=== PATIENT | female | born 1935 | race American Indian/Alaskan Native ===

== ENCOUNTER 2016-09-21 10:02 | Outpatient (CLI) | payer MEDICARE ==
--- NOTE | 2016-09-21 11:06 | Mammography Report ---
BONE DENSITY STUDY: Postmenopausal osteoporosis. DEFINITIONS: BMD = Bone Mineral Density T-score = BMD related to mean peak bone mass of young adult (mean expressed in Standard Deviation) Z-score = Age matched BMD expressed in SD World Health Organization (WHO) Diagnostic Criteria Normal T-score > -1 SD Osteopenia T-score between -1 and -2.4 SD Osteoporosis T-score -2.5 SD or below FINDINGS: The weighted average BMD of lumbar spine L1-L4 is 1.067 with a T-score of -0.8. The weighted average BMD of hip is 0.820 with a T-score of -1.3. IMPRESSION: The patient's average T-score is diagnostic for osteopenia and average relative risk for fracture. NOTE: BMD is not the only risk factor for fracture; also consider factors such as the patient's age, risk of falling, previous osteoporotic fracture, family history of osteoporotic fractures, current smoker, and low body weight. Mckinney's triangle is a region of interest in femur, predominantly of trabecular bone. It is not a true anatomic site, and ISCD does not recommend its use clinically.
== END 2016-09-21 10:03 | disposition home or self-care (01) ==
LOC: SPVWC 10:02
PROVIDERS: ATTEND Internal Medicine
DX: M81.0 Age-related osteoporosis without current pathological fracture (principal); M85.88 Other specified disorders of bone density and structure, other site
CPT/HCPCS: 77080

== ENCOUNTER 2022-01-03 17:09 | Inpatient (IN) | payer MEDICARE ==
[2022-01-03] MEDS ORDERED: SODIUM CHLORIDE 0.9% 500 ML 500 ML IV ONE ×2 (17:19→19:10)
[2022-01-03] MEDS ORDERED: ATROPINE 0.1% (1 MG/10 ML) CARDIAC SYRINGE IV ONE ×2 (17:19→20:03)
[2022-01-03] MEDS ORDERED: SODIUM BICARB 8.4% 50 MEQ/50 ML SYRINGE IV ONE ×2 (17:20→19:10)
--- NOTE | 2022-01-03 17:23 | Emergency Department Report ---
ED General Adult HPI - General Chief complaint: Altered Mental Status Stated complaint: BRADYCARDIA Time Seen by Provider: 01/03/22 17:14 Source: patient, EMS (Verbal report received from emergency medical services. EMS documentation not available at time of chart dictation ), RN notes reviewed, old records reviewed Mode of arrival: Stretcher Limitations: Altered Mental Status, Physical Limitation - History of Present Illness Initial comments: The patient was evaluated in the emergency department for symptoms described in the history of present illness. He/she was evaluated in the context of the global COVID-19 pandemic, which necessitated consideration that the patient might be at risk for infection with the virus that causes COVID-19. Insti tutional protocols and algorithms that pertain to the evaluation of patients at risk for COVID-19 are in a state of rapid change based on information released by regulatory bodies including the CDC and federal and state organizations. These policies and algorithms were followed during the patient's care in the emergency department. Please note that these policies, procedures and recommendations changed on a rapid basis. This is an 86-year-old female with an unknown past medical history. She is brought to the hospital by emergency medical services. EMS reports that they were activated after her neighbor went to check on patient, after son, who is currently out of state, felt that the patient was altered. As per EMS, last known well time is not known, but likely yesterday. The patient denies physical pain. As per EMS, patient bradycardic in the field, heart rate of 38 bpm, blood p ressure in the 80s/90s. EMS gave atropine x1, with improvement in blood pressure, heart rate to the mid 40s. EMS reports normal Accu-Chek in the field Patient is currently awake and alert to name, following commands. She denies headache, neck pain, chest pain, abdominal pain and shortness of breath. She does not know what medications he takes. Resting heart rate currently 42 bpm. Blood pressure 89mmHg systolic. Patient given 1 mg of atropine, blood pressure improved to 110 mmHg systolic -: unknown - Related Data Allergies Allergy/AdvReac Type Severity Reaction Status Date / Time latex Allergy Rash Unverified 04/14/13 10:11 ED Review of Systems ROS: Stated complaint: BRADYCARDIA Other details as noted in HPI Comment: Unobtainable due to pts medical conditions Constitutional: malaise. denies: fever Eyes: denies: eye discharge Respiratory: denies: cough Cardiovascular: denies: chest pain Gastrointestinal: denies: abdominal pain Neurological: weakness, confusion ED Past Medical Hx - Past Medical History Hx Hypertension: Yes Hx Heart Attack/AMI: Yes Hx Diabetes: Yes - Surgical History Hx Open Heart Surgery: Yes Hx Cholecystectomy: Yes Additional Surgical History: hysterectomy - Social History Smoking Status: Never Smoker Substance Use Type: None ED Physical Exam - General Limitations: Altered Mental Status General appearance: obese, other (The patient is listless but aroused) - Head Head exam: Present: atraumatic, normocephalic - Eye Eye exam: Present: normal appearance, EOMI. Absent: nystagmus - ENT ENT exam: Present: normal exam, normal orophraynx, mucous membranes moist, normal external ear exam - Neck Neck exam: Present: normal inspection, full ROM. Absent: tenderness, meningismus - Respiratory Respiratory exam: Present: decreased breath sounds. Absent: respiratory distress, wheezes, rales, rhonchi, stridor - Cardiovascular Cardiovascular Exam: Present: normal rhythm, bradycardia. Absent: tachycardia, irregular rhythm, systolic murmur, diastolic murmur, rubs, gallop - GI/Abdominal GI/Abdominal exam: Present: soft. Absent: distended, tenderness, guarding, rebound, rigid, pulsatile mass - Extremities Exam Extremities exam: Present: normal inspection, full ROM, pedal edema, other (2+ pulses noted in the bilateral upper and lower extremities. There is no palpable cord. negative Homans sign. Muscular compartments are soft. The pelvis is stable.). Absent: calf tenderness - Back Exam Back exam: Present: normal inspection. Absent: tenderness, CVA tenderness (R), CVA tenderness (L), paraspinal tenderness, vertebral tenderness - Neurological Exam Neurological exam: Present: altered, other (There is no facial droop. The tongue is midline. EOMI. 5 out of 5 strength in 4 extremities. Sensation is i ntact to light touch in 4 extremities) - Psychiatric Psychiatric exam: Present: flat affect - Skin Skin exam: Present: warm, dry, intact, normal color. Absent: rash ED Course Vital Signs 01/03/22 01/03/22 17:48 18:29 Temperature 97.5 F L Pulse Rate 47 L 48 L Respiratory 18 18 Rate Blood Pressure 123/46 Blood Pressure 123/46 136/52 [Left] O2 Sat by Pulse 97 99 Oximetry - Reevaluation(s) Reevaluation #1: 01/03/22 17:40 Differential diagnosis, including but not limited to: Symptomatic bradycardia, pneumonia, UTI, iatrogenic bradycardia, medication interaction/polypharmacy, intracranial lesion, electrolyte derangement Assessment and plan: 86-year-old female with confusion, and bradycardia, improving low blood pressure. N.p.o., aspiration precautions, head of bed elevation. Low threshold to urbano nue administering calcium gluconate, as well as atropine. Obtain appropriate laboratory studies, x-ray the chest, noncontrast CT scan of the brain. Neighbor is going to try and obtain a list of medications that patient takes at home. Son is currently in [place], and does not know what medications the patient takes. We will also discussed with cardiology. 01/03/22 17:52 Blood pressure in the 120s. Contacted cardiology on-call, Dr. Frida Mai Discussed patient's history, physical, EKG findings and clinical impression. Recommend supportive care, fluids, diagnostic work-up and evaluation for undifferentiated altered mental status. Advises that at this point in time, temporary pacemaker not necessary. The cardiology group can follow in consultation. Currently awaiting remainder of laboratory studies and diagnostic work-up 01/03/22 20:03 Heart rate in the 50s. CT scan brain negative for acute findings. Laboratory studies remarkable for potassium of 5.6, and renal insufficiency. Home medications include pantoprazole, amlodipine, azithromycin, Plavix, isosorbide, Bumex, aspirin, hydrocodone, calcitriol, simvastatin. Given hypotension, renal insufficiency, bradycardia, potassium of 5.6, concern for symptom of bradycardia, renal insufficiency, AV amish blockade, shock, and hyperkalemia. Blood pressure currently in the 140s. Patient will be treated empirically for potassium of 5.6/hyperkalemia. Hospital physician, Dr. Brambila, to admit patient to the medical service. Patient and family endorse that the patient herself follows with Dr. Pereira of nephrology. We will obtain nephrology consultation. Cardiology also updated regarding suspicion for brash syndrome. Patient is awake, moving 4 extremities, and appears clinically improved. 01/03/22 20:28 discussed the patient's history, physical, laboratory studies and imaging studies and clinical impression with nephrology on-call, Dr. Pereira. He will follow in consultation ED Medical Decision Making - Lab Data Result diagrams: 01/03/22 18:06 01/03/22 18:06 Vital Signs 01/03/22 17:48 Temperature 97.5 F L Pulse Rate 47 L Respiratory 18 Rate Blood Pressure 123/46 Blood Pressure 123/46 [Left] O2 Sat by Pulse 97 Oximetry - EKG Data -: EKG Interpreted by Me Rate: bradycardia - EKG Data 01/03/22 17:53 The EKG is interpreted at 17: 19 Bradycardia, 43 bpm. There is a borderline leftward axis deviation, with left ventricular hypertrophy, and poor R wave progression. There are nonspecific T wave abnormalities. This is an abnormal EKG. This is not a STEMI - Radiology Data Radiology results: pending, report reviewed, image reviewed CHEST 1 VIEW 01/03/2022 5:29 PM INDICATION / CLINICAL INFORMATION: Altered Mental Status. COMPARISON: 10/23/13 FINDINGS: SUPPORT DEVICES: None. HEART / MEDIASTINUM: Heart is normal size. Median sternotomy wires are unchanged. LUNGS / PLEURA: No significant pulmonary or pleural abnormality. No pneumothorax. ADDITIONAL FINDINGS: No significant additional findings. IMPRESSION: 1. No acute findings. No significant change. Signer Name: Flex Ledezma MD Signed: 01/03/2022 4:[address] head/brain wo con INDICATION / CLINICAL INFORMATION: 86 years Female; Altered Mental Status. TECHNIQUE: Routine CT head without contrast. All CT scans at this location are performed using CT dose reduction for ALARA by means of automated exposure control. COMPARISON: None. FINDINGS: BRAIN / INTRACRANIAL CONTENTS: There is mild cerebral white matter disease most consistent with microvascular angiopathy. There is also mild to moderate cerebral atrophy. The ventricular system is correspondingly appropriate in size and configuration. There is no clear CT ends of acute intracranial hemorrhage or significant mass effect. ORBITS: No significant abnormality of visualized orbits. SINUSES / MASTOIDS: No significant abnormality in the visualized paranasal sinuses or mastoid air cells. CRANIOCERVICAL JUNCTION: No significant abnormality. ADDITIONAL FINDINGS: None. IMPRESSION: 1. 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 Signer Name: Ed Bolaños MD Signed: 01/03/2022 5:16 PM Workstation Name: [id number] Critical Care Time: Yes Critical care time in (mins) excluding proc time.: 45 Critical care attestation.: If time is entered above; I have spent that time in minutes in the direct care of this critically ill patient, excluding procedure time. ED Disposition Clinical Impression: Bradycardia, Acute encephalopathy, Hyperkalemia, Renal insufficiency, Hypotension, Calcium channel leigh adverse reaction Disposition: 09 ADMITTED INPATIENT Is pt being admited?: Yes Does the pt Need Aspirin: No Condition: Serious
--- NOTE | 2022-01-03 17:47 | XRay Report ---
CHEST 1 VIEW 01/03/2022 5:29 PM INDICATION / CLINICAL INFORMATION: Altered Mental Status. COMPARISON: 10/23/13 FINDINGS: SUPPORT DEVICES: None. HEART / MEDIASTINUM: Heart is normal size. Median sternotomy wires are unchanged. LUNGS / PLEURA: No significant pulmonary or pleural abnormality. No pneumothorax. ADDITIONAL FINDINGS: No significant additional findings. IMPRESSION: 1. No acute findings. No significant change. Signer Name: Flex Ledezma MD Signed: 01/03/2022 5:43 PM Workstation Name: [id number]
[2022-01-03] MEDS ORDERED: CALCIUM GLUCONATE 1,000 MG in SODIUM CHLORIDE 0.9% 100 ML IV ONE (18:00)
--- NOTE | 2022-01-03 18:21 | Cat Scan Report ---
CT head/brain wo con INDICATION / CLINICAL INFORMATION: 86 years Female; Altered Mental Status. TECHNIQUE: Routine CT head without contrast. All CT scans at this location are performed using CT dos e reduction for ALARA by means of automated exposure control. COMPARISON: None. FINDINGS: BRAIN / INTRACRANIAL CONTENTS: There is mild cerebral white matter disease most consistent with micro vascular angiopathy. There is also mild to moderate cerebral atrophy. The ventricular system is corre spondingly appropriate in size and configuration. There is no clear CT ends of acute intracranial hem orrhage or significant mass effect. ORBITS: No significant abnormality of visualized orbits. SINUSES / MASTOIDS: No significant abnormality in the visualized paranasal sinuses or mastoid air rachid ls. CRANIOCERVICAL JUNCTION: No significant abnormality. ADDITIONAL FINDINGS: None. IMPRESSION: 1. 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 Signer Name: Ed Bolaños MD Signed: 01/03/2022 6:16 PM Workstation Name: [id number]
[2022-01-03 18:38] LABS: Basophils % (Auto) 0.7 % (0.0-1.8); Eosinophils # (Auto) 0.1 K/mm3 (0.0-0.4); Eosinophils % (Auto) 2.5 % (0.0-4.3); Hematocrit 29.9 % (30.3-42.9); Hemoglobin 9.9 gm/dl (10.1-14.3); Lymphocytes # (Auto) 1.7 K/mm3 (1.2-5.4); Lymphocytes % (Auto) 33.5 % (13.4-35.0); Mean Corpuscular HGB Conc 33 % (30-34); Mean Corpuscular Volume 87 fl (79-97); Monocytes # (Auto) 0.6 K/mm3 (0.0-0.8); Monocytes % (Auto) 11.3 % (0.0-7.3); Platelet Count 203 K/mm3 (140-440); Red Blood Count 3.42 M/mm3 (3.65-5.03); Red Cell Distribution Width 14.4 % (13.2-15.2)
[2022-01-03 18:49] LABS: Partial Thromboplastin Time 35.8 Sec. (24.2-36.6)
[2022-01-03 18:50] LABS: Albumin 3.6 g/dL (3.9-5); Calcium 9.1 mg/dL (8.4-10.2)
[2022-01-03] MEDS ORDERED: CALC GLUCONATE 1GM/NS 100 ML 1 GM/100 ML BAG IV ONE ×2 (19:00→20:00)
--- NOTE | 2022-01-03 19:02 | History and Physical Report ---
History of Present Illness Chief complaint: She was not acting like her self History of present illness: 86 YO Female with Vascular Dementia, Cerebral Atherosclerosis, HTN, ND, DM presents to ED for evaluation. Patient has diminished cognition at the time my evaluation and provides minimal history. Patient reports I feel weak". Additional history provided by EMS staff, ED staff, as well as the patient's neighbor who was at patient bedside during exam and interview. As per neighbor she went to do a well check and found that the patient was weak and confused and not in her normal state of health. EMS notified and upon arrival the patient was found to be in distress with a heart rate in the 30s and systolic blood pressure in the 80s. Patient treated with atropine and transported to [facility] further care and evaluation of the aforementioned symptoms. The patient was seen and evaluated in the emergency department. All lab and imaging studies reviewed. Patient found to have acute encephalopathy, hypotension, hyperkalemia, brash syndrome. Patient admitted to IMCU due to increased risk of worsening symptoms and for medical stabilization. Patient remains confused with diminished cognition at the time of evaluation but has a positive gag reflex and is able to protect her airway without difficulty. Prior mission on 04/13/2017 reviewed. All medication listed at time of admission has been reconciled. Advanced care planning conducted in ED. Cardiology team consulted in ED. Nephrology team consulted in ED. Past History Past Medical History: acute ND, diabetes, hypertension Past Surgical History: cholecystectomy, hysterectomy Social history: . denies: smoking, alcohol abuse, prescription drug abuse Family history: diabetes, hypertension Medications and Allergies Allergies Allergy/AdvReac Type Severity Reaction Status Date / Time latex Allergy Rash Unverified 04/14/13 10:11 Active Meds: Active Medications CALC GLUCONATE 1GM/NS 100 ML (Calcium Gluonate/Ns 1,000mg/100ml) 1 gm in 100 mls @ 660 mls/hr IV ONCE ONE Stop: 01/03/22 19:09 Last Admin: 01/03/22 18:58 Dose: 660 mls/hr Review of Systems ROS unobtainable: due to mental status Exam - Constitutional Vitals: Temp Pulse Resp BP Pulse Ox 97.5 F L 48 L 18 136/52 99 01/03/22 17:48 01/03/22 18:29 01/03/22 18:29 01/03/22 18:29 01/03/22 18:29 General appearance: Present: mild distress - EENT Eyes: Present: PERRL ENT: hearing intact, clear oral mucosa, hearing decreased - Neck Neck: Present: supple, normal ROM - Respiratory Respiratory effort: normal Respiratory: bilateral: CTA - Cardiovascular Rhythm: other (Bradycardia) - Extremities Extremities: pulses symmetrical, No edema Peripheral Pulses: within normal limits - Abdominal General gastrointestinal: Present: soft, non-tender, non-distended, normal bowel sounds Female genitourinary: Present: normal - Integumentary Integumentary: Present: clear, dry - Musculoskeletal Musculoskeletal: generalized weakness - Psychiatric Psychiatric: no appropriate mood/affect, no intact judgment & insight - Neurologic Neurologic: CNII-XII intact, no focal deficits, moves all extremities, no gait normal HEART Score - HEART Score Troponin: Troponin T 0.011 ng/mL (0.00-0.029) 01/03/22 18:06 Results - Labs CBC & Chem 7: 01/03/22 18:06 01/03/22 18:06 Labs: Abnormal lab results 01/03/22 01/03/22 01/03/22 Range/Units 18:06 18:06 18:06 RBC 3.42 L (3.65-5.03) M/mm3 Hgb 9.9 L (10.1-14.3) gm/dl Hct 29.9 L (30.3-42.9) % [place] % (Auto) 11.3 H (0.0-7.3) % Potassium 5.6 H (3.6-5.0) mmol/L BUN 29 H (7-17) mg/dL Creatinine 2.0 H (0.6-1.2) mg/dL Ammonia 22.0 L (25-60) umol/L Albumin 3.6 L (3.9-5) g/dL Salicylates (2.8-20.0) mg/dL Acetaminophen (10.0-30.0) ug/mL 01/03/22 01/03/22 Range/Units 18:06 18:06 RBC (3.65-5.03) M/mm3 Hgb (10.1-14.3) gm/dl Hct (30.3-42.9) % [place] % (Auto) (0.0-7.3) % Potassium (3.6-5.0) mmol/L BUN (7-17) mg/dL Creatinine (0.6-1.2) mg/dL Ammonia (25-60) umol/L Albumin (3.9-5) g/dL Salicylates < 0.3 L (2.8-20.0) mg/dL Acetaminophen 5.0 L (10.0-30.0) ug/mL Assessment and Plan - Patient Problems (1) Syndrome Status: Acute 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 Supportive care. Maintain atropine at bedside. (2) Acute encephalopathy Status: Acute Plan to address problem: CT scan head, neuro check, seizure precautions, supportive care, fall precautions. (3) Bradycardia Status: Acute Plan to address problem: Telemetry monitoring, supportive care. Cardiology team consulted. Echocardiogram ordered and pending at time of admission. (4) Hypertension Status: Acute Qualifiers: Hypertension type: primary hypertension Qualified Code(s): I10 - Essential (primary) hypertension Plan to address problem: Monitor blood pressure every shift, continue medical management. (5) Hyperkalemia Status: Acute Plan to address problem: Calcium gluconate, Kayexalate, BMP, repeat BMP in a.m. (6) Vascular dementia Status: Acute Qualifiers: Dementia behavioral disturbance: without behavioral disturbance Qualified Code(s): F01.50 - Vascular dementia without behavioral disturbance Plan to address problem: Verbal prompting, verbal redirection, benzodiazepine therapy as clinically indicated. (7) Cerebral atherosclerosis Status: Acute Plan to address problem: Risk factor reduction, supportive care, antiplatelet therapy as clinically indicated. (8) DVT prophylaxis Status: Acute Plan to address problem: SCD to bilateral lower extremities while in bed (9) Advance care planning Status: Acute Plan to address problem: Disease education done, care plan discussed, diagnoses discussed, prognosis discussed, patient is full code. Patient caregiver acknowledges understanding and agreement care plan, +30 minutes. (10) Preventative health care Status: Acute Plan to address problem: Patient and caregiver counseled regarding home safety precautions, outpatient follow-up with primary care physician for all age and risk factor appropriate screening test. +30 minutes.
[2022-01-03] MEDS ORDERED: SODIUM POLYSTYRENE 15 GM/60 ML ORAL LIQD PO ONE (19:10)
[2022-01-03] MEDS ORDERED: ALBUTEROL 2.5 MG/3 ML NEBU IH ONE (19:10)
[2022-01-03] MEDS ORDERED: INSULIN REGULAR, HUMAN 100 UNITS/1 ML IV ONE (19:10)
[2022-01-03] MEDS ORDERED: DEXTROSE 50% IN WATER (25GM) 50 ML SYRINGE IV PRN (19:10)
[2022-01-03] MEDS ORDERED: ALBUTEROL 2.5 MG/3 ML NEBU IH PRN (19:30)
[2022-01-03] MEDS ORDERED: oxyCODONE /ACETAMINOPHEN 5-325MG TAB PO PRN (19:30)
[2022-01-03] MEDS ORDERED: HYDROmorphone 0.5 MG/0.5 ML INJ IV PRN (19:30)
[2022-01-03] MEDS ORDERED: ACETAMINOPHEN 325 MG TAB PO PRN (19:30)
[2022-01-03] MEDS: ONDANSETRON 4 MG/2 ML INJ IV PRN (23:34)
[2022-01-04] MEDS ORDERED: SODIUM POLYSTYRENE 15 GM/60 ML ORAL LIQD PO ONE (00:15)
[2022-01-04] MEDS ORDERED: INSULIN REGULAR, HUMAN 100 UNITS/1 ML IV ONE (00:15)
[2022-01-04] MEDS ORDERED: SODIUM BICARB 8.4% 50 MEQ/50 ML SYRINGE IV ONE (00:15)
[2022-01-04] MEDS ORDERED: METOCLOPRAMIDE 10 MG/2 ML INJ IV ONE (02:45)
[2022-01-04 03:53] LABS: Bacteria,Urine 1+ /HPF (Negative); Mucus,Urine FEW /HPF; WBC,Urine < 1.0 /HPF (0.0-6.0)
[2022-01-04 03:56] LABS: Color,Urine Yellow (Yellow)
[2022-01-04] MEDS ORDERED: DEXTROSE 50% IN WATER (25GM) 50 ML SYRINGE IV PRN (08:36)
--- NOTE | 2022-01-04 08:44 | Progress Note ---
Assessment and Plan Assessment and plan: 86 YO Female with Vascular Dementia, Cerebral Atherosclerosis, HTN, MS, DM presents to ED for evaluation. Patient has diminished cognition at the time my evaluation and provides minimal history. Patient reports I feel weak". Additional history provided by EMS staff, ED staff, as well as the patient's neighbor who was at patient bedside during exam and interview. As per neighbor she went to do a well check and found that the patient was weak and confused and not in her normal state of health. EMS notified and upon arrival the patient was found to be in distress with a heart rate in the 30s and systolic blood pressure in the 80s. Patient treated with atropine and transported to [facility] for further care and evaluation of the aforementioned symptoms. The patient was seen and evaluated in the emergency department. All lab and imaging studies reviewed. Patient found to have acute encephalopathy, hypotension, hyperkalemia, brash syndrome. Patient admitted to [facility] due to increased risk of worsening symptoms and for medical stabilization. Patient remains confused with diminished cognition at the time of evaluation but has a positive gag reflex and is able to protect her airway without difficulty. Prior mission on 04/13/2017 reviewed. All medication listed at time of admission has been reconciled. Advanced care planning conducted in ED. Cardiology team consulted in ED. Nephrology team consulted in ED. Past History Past Medical History: acute MS, diabetes, hypertension Past Surgical History: cholecystectomy, hysterectomy Social history: . denies: smoking, alcohol abuse, prescription drug abuse Family history: diabetes, hypertension CT scan brain negative for acute findings. 01/04: Patient was noted on EMS documentation per ED to "patient bradycardic in the field, heart rate of 38 bpm, blood pressure in the 80s/90s. EMS gave atropine x1, with improvement in blood pressure, heart rate to the mid 40s." Renal function was noted to be abnormal with Creatnine of 2 which is above her Baseline of 1. There was concern for Brash Syndrome Given the hypotension, renal insufficiency, bradycardia, potassium of 5.6, concern for symptom of bradycardia, renal insufficiency, AV amish blockade, shock, and hyperkalemia.and patient was started on IV calclium and also fluids with Atropin given. She currently has improved HR AND Bp, Will restart some of her BP meds but avoid the Calcium channel blockers and the BB for now. Will restart her Insulin regimen and adjust diet Will obtain KUB PT/OT Will transfer to Telemetry floor. Anticipate discharge in 24 hrs Grandson updated. (1) Brash Syndrome Status: Acute 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 Supportive care. Maintain atropine at bedside. (2) Acute encephalopathy Status: Acute Plan to address problem: CT scan head, neuro check, seizure precautions, supportive care, fall precautions. (3) Bradycardia Status: Acute Plan to address problem: Telemetry monitoring, supportive care. Cardiology team consulted. Echocardiogram ordered and pending at time of admission. (4) Hypertension Status: Acute Qualifiers: Hypertension type: primary hypertension Qualified Code(s): I10 - Essential (primary) hypertension Plan to address problem: Monitor blood pressure every shift, continue medical management. (5) Hyperkalemia Status: Acute Plan to address problem: Calcium gluconate, Kayexalate, BMP, repeat BMP in a.m. (6) Vascular dementia Status: Acute Qualifiers: Dementia behavioral disturbance: without behavioral disturbance Qualified Code(s): F01.50 - Vascular dementia without behavioral disturbance Plan to address problem: Verbal prompting, verbal redirection, benzodiazepine therapy as clinically indicated. (7) Cerebral atherosclerosis Status: Acute Plan to address problem: Risk factor reduction, supportive care, antiplatelet therapy as clinically indicated. (8) Diabetes Mellitus (9) Abdominal Pain (10) DVT prophylaxis Status: Acute Plan to address problem: SCD to bilateral lower extremities while in bed (11) Advance care planning Status: Acute Plan to address problem: Disease education done, care plan discussed, diagnoses discussed, prognosis discussed, patient is full code. Patient caregiver acknowledges understanding and agreement care plan, +30 minutes. (12) Preventative health care Status: Acute Plan to address problem: Patient and caregiver counseled regarding home safety precautions, outpatient follow-up with primary care physician for all age and risk factor appropriate screening test. +30 minutes. History Interval history: Patient seen and examined, resting comfortable. Overnight was reportedly having nausea with vomiting and complaining of abdominal pain. The later is resolved this am. Hospitalist Physical - Physical exam Narrative exam: General appearance: Present: No distress this am but with some confusion ?baseline - EENT Eyes: Present: PERRL ENT: hearing intact, clear oral mucosa, hearing decreased - Neck Neck: Present: supple, normal ROM - Respiratory Respiratory effort: normal Respiratory: bilateral: CTA - Cardiovascular Rhythm: Regular - Extremities Extremities: pulses symmetrical, No edema Peripheral Pulses: within normal limits - Abdominal General gastrointestinal: Present: soft, non-tender, non-distended, normal bowel sounds. Increased abdominal girth Female genitourinary: Present: normal - Integumentary Integumentary: Present: clear, dry - Musculoskeletal Musculoskeletal: generalized weakness - Psychiatric Psychiatric: no appropriate mood/affect, no intact judgment & insight - Neurologic Neurologic: CNII-XII intact, no focal deficits, moves all extremities, no gait normal - Constitutional Vitals: Temp Pulse Resp BP Pulse Ox 97.7 F 91 H 24 186/80 100 01/04/22 07:19 01/04/22 06:30 01/04/22 06:30 01/04/22 06:30 01/04/22 06:30 General appearance: Present: mild distress HEART Score - HEART Score Troponin: Troponin T 0.011 ng/mL (0.00-0.029) 01/03/22 18:06 Results - Labs CBC & Chem 7: 01/03/22 18:06 01/03/22 18:06 Labs: Laboratory Last Values WBC 5.1 K/mm3 (4.5-11.0) 01/03/22 18:06 RBC 3.42 M/mm3 (3.65-5.03) L 01/03/22 18:06 Hgb 9.9 gm/dl (10.1-14.3) L 01/03/22 18:06 Hct 29.9 % (30.3-42.9) L 01/03/22 18:06 MCV 87 fl (79-97) 01/03/22 18:06 MCH 29 pg (28-32) 01/03/22 18:06 MCHC 33 % (30-34) 01/03/22 18:06 RDW 14.4 % (13.2-15.2) 01/03/22 18:06 Plt Count 203 K/mm3 (140-440) 01/03/22 18:06 Lymph % (Auto) 33.5 % (13.4-35.0) 01/03/22 18:06 Lake % (Auto) 11.3 % (0.0-7.3) H 01/03/22 18:06 Eos % (Auto) 2.5 % (0.0-4.3) 01/03/22 18:06 Baso % (Auto) 0.7 % (0.0-1.8) 01/03/22 18:06 Lymph # (Auto) 1.7 K/mm3 (1.2-5.4) 01/03/22 18:06 Lake # (Auto) 0.6 K/mm3 (0.0-0.8) 01/03/22 18:06 Eos # (Auto) 0.1 K/mm3 (0.0-0.4) 01/03/22 18:06 Baso # (Auto) 0.0 K/mm3 (0.0-0.1) 01/03/22 18:06 Seg Neutrophils % 52.0 % (40.0-70.0) 01/03/22 18:06 Seg Neutrophils # 2.6 K/mm3 (1.8-7.7) 01/03/22 18:06 PT 14.3 Sec. (12.2-14.9) 01/03/22 18:06 INR 1.00 (0.87-1.13) 01/03/22 18:06 APTT 35.8 Sec. (24.2-36.6) 01/03/22 18:06 Sodium 138 mmol/L (137-145) 01/03/22 18:06 Potassium 5.6 mmol/L (3.6-5.0) H 01/03/22 18:06 Chloride 104.9 mmol/L (98-107) 01/03/22 18:06 Carbon Dioxide 25 mmol/L (22-30) 01/03/22 18:06 Anion Gap 14 mmol/L 01/03/22 18:06 BUN 29 mg/dL (7-17) H 01/03/22 18:06 Creatinine 2.0 mg/dL (0.6-1.2) H 01/03/22 18:06 Estimated GFR 29 ml/min 01/03/22 18:06 BUN/Creatinine Ratio 15 % 01/03/22 18:06 Glucose 92 mg/dL (65-100) 01/03/22 18:06 Lactic Acid 1.00 mmol/L (0.7-2.0) 01/03/22 18:06 Calcium 9.1 mg/dL (8.4-10.2) 01/03/22 18:06 Total Bilirubin 0.30 mg/dL (0.1-1.2) 01/03/22 18:06 AST 12 units/L (5-40) 01/03/22 18:06 ALT 7 units/L (7-56) 01/03/22 18:06 Alkaline Phosphatase 67 units/L (35-129) 01/03/22 18:06 Ammonia 22.0 umol/L (25-60) L 01/03/22 18:06 Total Creatine Kinase 60 units/L (30-135) 01/03/22 18:06 Troponin T 0.011 ng/mL (0.00-0.029) 01/03/22 18:06 Total Protein 6.4 g/dL (6.3-8.2) 01/03/22 18:06 Albumin 3.6 g/dL (3.9-5) L 01/03/22 18:06 Albumin/Globulin Ratio 1.3 % 01/03/22 18:06 TSH 2.370 mlU/mL (0.270-4.200) 01/03/22 18:06 Urine Color Yellow (Yellow) 01/04/22 03:30 Urine Turbidity Slightly cloudy (Clear) 01/04/22 03:30 Ur Protein (Man) 1+ mg/dL (Negative) 01/04/22 03:30 Ur Ketones (Man) 5mg/dl (Negative) 01/04/22 03:30 Ur Nitrite (Man) Negative (Negative) 01/04/22 03:30 Ur Reducing Substances Not Reportable 01/04/22 03:30 Urine Bilirubin (Man) Negative (Negative) 01/04/22 03:30 Urine Ictotest Not Reportable 01/04/22 03:30 Leukocyte Esterase (Man) Negative (Negative) 01/04/22 03:30 Urine WBC (Auto) < 1.0 /HPF (0.0-6.0) 01/04/22 03:30 Urine RBC (Auto) 2.0 /HPF (0.0-6.0) 01/04/22 03:30 U Epithel Cells (Auto) 1.0 /HPF (0-13.0) 01/04/22 03:30 Urine Bacteria (Auto) 1+ /HPF (Negative) 01/04/22 03:30 Urine RBC (Manual) Negative (Negative) 01/04/22 03:30 Urine Mucus Few /HPF 01/04/22 03:30 Salicylates < 0.3 mg/dL (2.8-20.0) L 01/03/22 18:06 Acetaminophen 5.0 ug/mL (10.0-30.0) L 01/03/22 18:06 Plasma/Serum Alcohol < 0.01 % (0-0.07) 01/03/22 18:06 Blood Type O POSITIVE 01/03/22 18:06 Antibody Screen Negative 01/03/22 18:06 Seals/IV: Voiding Method External Female Catheter Active Medications - Current Medications Current Medications: Generic Name Dose Route Start Last Admin Trade Name Freq PRN Reason Stop Dose Admin Acetaminophen 650 mg 01/03/22 19:30 01/04/22 05:09 Acetaminophen 325 Mg Tab PO 650 mg Q4H PRN Administration Pain MILD(1-3)/Fever >100.5/FLORES Albuterol 2.5 mg 01/03/22 19:30 Albuterol 2.5 Mg/3 Ml Nebu IH Q4HRT PRN Shortness Of Breath Albuterol/Ipratropium 1 ampul 01/04/22 14:00 Ipratropium/Albuterol Sulfate 3 Ml Ampul.Neb IH Q6HRT [facility] Amlodipine Besylate 5 mg 01/04/22 10:00 Amlodipine 5 Mg Tab PO QDAY [facility] Brimonidine/Timolol 1 drops 01/04/22 10:00 Combigan 0.2-0.5% Ophth Soln OU Q12HR [facility] Bumetanide 2 mg 01/04/22 10:00 Bumetanide 1 Mg Tab PO QDAY [facility] Clopidogrel Bisulfate 75 mg 01/04/22 10:00 Clopidogrel 75 Mg Tab PO QDAY [facility] Dextrose 50 ml 01/03/22 19:10 Dextrose 50% In Water (25gm) 50 Ml Syringe IV Q30MIN PRN Hypoglycemia Protocol Dextrose 50 ml 01/04/22 08:36 Dextrose 50% In Water (25gm) 50 Ml Syringe IV Q30MIN PRN Hypoglycemia Protocol Famotidine 40 mg 01/04/22 10:00 Famotidine 20 Mg Tab PO QDAY [facility] Hydromorphone HCl 0.5 mg 01/03/22 19:30 01/04/22 02:02 Hydromorphone 0.5 Mg/0.5 Ml Inj IV 0.5 mg Q23H PRN Administration Pain , Severe (7-10) Insulin Human Lispro 0 unit 01/04/22 11:30 Insulin Lispro 100 Unit/Ml SUB-Q ACHS [facility] Protocol Isosorbide Dinitrate 40 mg 01/04/22 10:00 Isosorbide Dinitrate 20 Mg Tab PO BID [facility] Ondansetron HCl 4 mg 01/03/22 19:30 01/03/22 23:34 Ondansetron 4 Mg/2 Ml Inj IV 4 mg Q8H PRN Administration Nausea And Vomiting Oxycodone/Acetaminophen 1 tab 01/03/22 19:30 01/04/22 05:10 Oxycodone /Acetaminophen 5-325mg Tab PO 1 tab Q16H PRN Administration Pain, Moderate (4-6) Sodium Chloride 10 ml 01/03/22 22:00 01/03/22 22:00 Sodium Chloride 0.9% 10 Ml Flush Syringe IV 10 ml BID [facility] Administration Sodium Chloride 10 ml 01/03/22 19:30 Sodium Chloride 0.9% 10 Ml Flush Syringe IV PRN PRN LINE FLUSH
[2022-01-04] MEDS: ONDANSETRON 4 MG/2 ML INJ IV PRN (08:54)
[2022-01-04 09:04] LABS: Hemoglobin 13.3 gm/dl (10.1-14.3); Mean Corpuscular HGB Conc 33 % (30-34); Mean Corpuscular Volume 87 fl (79-97); Platelet Count 248 K/mm3 (140-440); Red Blood Count 4.58 M/mm3 (3.65-5.03); Red Cell Distribution Width 14.8 % (13.2-15.2)
--- NOTE | 2022-01-04 09:12 | XRay Report ---
ABDOMEN 1 VIEW 01/04/2022 8:43 AM INDICATION / CLINICAL INFORMATION: ABD PAIN. COMPARISON: None available. FINDINGS: TUBES / LINES: None. BOWEL GAS PATTERN: No dilated large or small bowel. Moderate amount of fecal material throughout the colon and rectum. FREE AIR / EXTRALUMINAL GAS: None. ADDITIONAL FINDINGS: No significant additional findings. IMPRESSION: 1. No acute findings. Moderate amount fecal material in the colon and rectum. Signer Name: Flex Ledezma MD Signed: 01/04/2022 9:08 AM Workstation Name: [id number]
[2022-01-04 09:28] LABS: Calcium 10.2 mg/dL (8.4-10.2)
[2022-01-04] MEDS ORDERED: amLODIPine 5 MG TAB PO SCH ×2 (10:00→11:00)
[2022-01-04] MEDS ORDERED: BUMETANIDE 1 MG TAB PO SCH (10:00)
[2022-01-04] MEDS ORDERED: FAMOTIDINE 20 MG TAB PO SCH (10:00)
--- NOTE | 2022-01-04 10:19 | Consultation ---
History of Present Illness - History of Present Illness Thank you for the consultation ! Patient was evaluated today, My assessment and plan are as follows Acute kidney injury, patient creatinine upon admission was 2.0 currently around 1.4, doing much better would not give her any form of DAMASO or ARB or diuretic at this time It appears the patient was not drinking enough fluid or the diuretics were becoming too strong for her Patient does have history of chronic kidney disease stable renal function, patient admitted here with hyperkalemia bradycardia, admission potassium was borderline high, given the patient does have evidence of bradycardia even with mild hyperkalemia she will need to be seen by noise tester, Avoid any amish blocking agents, she will need to be followed by cardiology #Mild hyperkalemia: Currently being treated conservatively, Will give additional dose of Lokelma Overall doing better from renal standpoint If you have any question in regards to this patient renal care please feel free to contact me at [phone] Author: Pedrito Pereira M.D. [facility], [address] [place] [address] Tel; [phone] [employer] Source of information: From patient as well as clinic records were also reviewed History of present illness Patient is a very pleasant 86-year-old female who is currently being followed in our office for her chronic kidney disease management, came into the hospital with bradycardia, renal failure as well as mild hyperkalemia, which was treated conservatively, outpatient records reviewed from our office shows that patient was last seen in our office by me on November 14, 2021, at that time her creatinine was around 1.8, patient has underlying stage IV chronic kidney disease prior to that in July 2020 her creatinine was 2.2 and earlier in April around 2.4, she was taking bumetanide 2 mg Wednesday and has not been taking any spironolactone, lisinopril losartan like drugs Past medical history: Chronic kidney disease, stage IV Congestive heart failure Secondary hyperparathyroidism Obstructive reflux uropathy, being followed by Dr. Kincaid Anemia and chronic kidney disease Diabetes mellitus type 2 Current allergies: Reviewed from the current chart Social history: Reviewed from the current chart Family history: Reviewed from the current chart Review of system: Positive for was brought in here for altered mental status, All other review of systems negative Physical examination Vitals: Reviewed General: No acute distress HEENT: Oral mucosa moist no pallor or icterus Neck: Supple without any JVD thyromegaly or nodular mass Chest: Clear to auscultation Heart: Regular rate and rhythm S1-S2 heard no S3-S4 Abdomen: Soft nontender, bowel sounds present no renal bruit no suprapubic masses no CVA tenderness noted Extremity: Minimal edema dry skin no peripheral cyanosis Endocrine: Thyroid not enlarged Psychiatric: No agitation and aggression noted Musculoskeletal: No joint effusion noted Labs and x-rays: Reviewed from this admission Past History Past Medical History: acute [place], diabetes, hypertension Past Surgical History: cholecystectomy, hysterectomy Social history: . denies: smoking, alcohol abuse, prescription drug abuse Family history: diabetes, hypertension Medications and Allergies Allergies Allergy/AdvReac Type Severity Reaction Status Date / Time latex Allergy Rash Verified 01/04/22 09:00 Active Meds: Active Medications Acetaminophen (Acetaminophen 325 Mg Tab) 650 mg PO Q4H PRN PRN Reason: Pain MILD(1-3)/Fever >100.5/FLORES Last Admin: 01/04/22 05:09 Dose: 650 mg Albuterol (Albuterol 2.5 Mg/3 Ml Nebu) 2.5 mg IH Q4HRT PRN PRN Reason: Shortness Of Breath Albuterol/Ipratropium (Ipratropium/Albuterol Sulfate 3 Ml Ampul.Neb) 1 ampul IH Q6HRT [facility] Brimonidine/Timolol (Combigan 0.2-0.5% Ophth Soln) 1 drops OU Q12HR [facility] Clopidogrel Bisulfate (Clopidogrel 75 Mg Tab) 75 mg PO QDAY [facility] Dextrose (Dextrose 50% In Water (25gm) 50 Ml Syringe) 50 ml IV Q30MIN PRN; Protocol PRN Reason: Hypoglycemia Famotidine (Famotidine 20 Mg Tab) 20 mg PO QDAY [facility] Hydralazine HCl (Hydralazine 25 Mg Tab) 50 mg PO Q8HR [facility] Hydromorphone HCl (Hydromorphone 0.5 Mg/0.5 Ml Inj) 0.5 mg IV Q23H PRN PRN Reason: Pain , Severe (7-10) Last Admin: 01/04/22 02:02 Dose: 0.5 mg Insulin Human Lispro (Insulin Lispro 100 Unit/Ml) 0 unit SUB-Q ACHS [facility]; Protocol Isosorbide Dinitrate (Isosorbide Dinitrate 20 Mg Tab) 40 mg PO BID [facility] Ondansetron HCl (Ondansetron 4 Mg/2 Ml Inj) 4 mg IV Q8H PRN PRN Reason: Nausea And Vomiting Last Admin: 01/04/22 08:54 Dose: 4 mg Oxycodone/Acetaminophen (Oxycodone /Acetaminophen 5-325mg Tab) 1 tab PO Q16H PRN PRN Reason: Pain, Moderate (4-6) Last Admin: 01/04/22 05:10 Dose: 1 tab Sodium Chloride (Sodium Chloride 0.9% 10 Ml Flush Syringe) 10 ml IV BID [facility] Last Admin: 01/03/22 22:00 Dose: 10 ml Sodium Chloride (Sodium Chloride 0.9% 10 Ml Flush Syringe) 10 ml IV PRN PRN PRN Reason: LINE FLUSH Exam - Vital Signs Vital signs: Vital Signs Temp Pulse Resp BP Pulse Ox 97.5 F L 47 L 18 123/46 97 01/03/22 17:48 01/03/22 17:48 01/03/22 17:48 01/03/22 17:48 01/03/22 17:48 Results - Lab Results 01/04/22 08:37 01/04/22 08:37 Most recent lab results Calcium 10.2 mg/dL (8.4-10.2) 01/04/22 08:37
[2022-01-04] MEDS: ISOSORBIDE DINITRATE 20 MG TAB PO SCH ×2 (10:35→21:58)
[2022-01-04] MEDS: hydrALAZINE 25 MG TAB PO SCH ×3 (10:35→22:00)
[2022-01-04] MEDS: CLOPIDOGREL 75 MG TAB PO SCH (10:35)
[2022-01-04] MEDS: FAMOTIDINE 20 MG TAB PO SCH (10:35)
[2022-01-04 10:44] LABS: Basophils % (Manual) 0 % (0.0-1.8); Eosinophils % (Manual) 0 % (0.0-4.3); Total Cells Counted 100
[2022-01-04 10:45] LABS: Platelet Estimate Consistent w Auto; RBC Morphology Normal
[2022-01-04] MEDS ORDERED: SODIUM CHLORIDE 0.9% 1000 ML 1,000 ML IV SCH (11:00)
[2022-01-04] MEDS: IPRATROPIUM/ALBUTEROL SULFATE 3 ML AMPUL.NEB IH SCH ×2 (13:14→21:02)
--- NOTE | 2022-01-04 15:14 | Consultation ---
History of Present Illness Consult date: 01/04/22 History of present illness: 85 YR OLD A/A female patient of [facility] presenting with an episode of altered mental status , hypotension and bradyarrhythmia. She as since been treated fluids and IV atropine and at the time of my evaluation appears back to her baseline as per her daughter who is present at the bedside. Past History Past Medical History: acute [place], diabetes, hypertension Past Surgical History: cholecystectomy, hysterectomy Social history: . denies: smoking, alcohol abuse, prescription drug abuse Family history: diabetes, hypertension Medications and Allergies Allergies Allergy/AdvReac Type Severity Reaction Status Date / Time latex Allergy Rash Verified 01/04/22 09:00 Active Meds: Active Medications Acetaminophen (Acetaminophen 325 Mg Tab) 650 mg PO Q4H PRN PRN Reason: Pain MILD(1-3)/Fever >100.5/FLROES Last Admin: 01/04/22 05:09 Dose: 650 mg Albuterol (Albuterol 2.5 Mg/3 Ml Nebu) 2.5 mg IH Q4HRT PRN PRN Reason: Shortness Of Breath Albuterol/Ipratropium (Ipratropium/Albuterol Sulfate 3 Ml Ampul.Neb) 1 ampul IH Q6HRT [facility] Last Admin: 01/04/22 13:14 Dose: 1 ampul Amlodipine Besylate (Amlodipine 5 Mg Tab) 5 mg PO QDAY [facility] Last Admin: 01/04/22 10:41 Dose: 5 mg Brimonidine/Timolol (Combigan 0.[facility]0.5% [facility] 1 drops OU Q12HR [facility] Clopidogrel Bisulfate (Clopidogrel 75 Mg Tab) 75 mg PO QDAY [facility] Last Admin: 01/04/22 10:35 Dose: 75 mg Dextrose (Dextrose 50% In Water (25gm) 50 Ml Syringe) 50 ml IV Q30MIN PRN; Protocol PRN Reason: Hypoglycemia Famotidine (Famotidine 20 Mg Tab) 20 mg PO QDAY [facility] Last Admin: 01/04/22 10:35 Dose: 20 mg Hydralazine HCl (Hydralazine 25 Mg Tab) 50 mg PO Q8HR [facility] Last Admin: 01/04/22 10:35 Dose: 50 mg Hydromorphone HCl (Hydromorphone 0.5 Mg/0.5 Ml Inj) 0.5 mg IV Q23H PRN PRN Reason: Pain , Severe (7-10) Last Admin: 01/04/22 02:02 Dose: 0.5 mg Sodium Chloride (Nacl 0.9% 1000 Ml) 1,000 mls @ 75 mls/hr IV DIRECT [facility] Stop: 01/05/22 00:19 Insulin Human Lispro (Insulin Lispro 100 Unit/Ml) 0 unit SUB-Q ACHS [facility]; Protocol Isosorbide Dinitrate (Isosorbide Dinitrate 20 Mg Tab) 40 mg PO BID [facility] Last Admin: 01/04/22 10:35 Dose: 40 mg Ondansetron HCl (Ondansetron 4 Mg/2 Ml Inj) 4 mg IV Q8H PRN PRN Reason: Nausea And Vomiting Last Admin: 01/04/22 08:54 Dose: 4 mg Oxycodone/Acetaminophen (Oxycodone /Acetaminophen 5-325mg Tab) 1 tab PO Q16H PRN PRN Reason: Pain, Moderate (4-6) Last Admin: 01/04/22 05:10 Dose: 1 tab Sodium Chloride (Sodium Chloride 0.9% 10 Ml Flush Syringe) 10 ml IV BID [facility] Last Admin: 01/04/22 10:35 Dose: 10 ml Sodium Chloride (Sodium Chloride 0.9% 10 Ml Flush Syringe) 10 ml IV PRN PRN PRN Reason: LINE FLUSH Physical Examination Vital Signs Temp Pulse Resp BP Pulse Ox 97.5 F L 47 L 18 123/46 97 01/03/22 17:48 01/03/22 17:48 01/03/22 17:48 01/03/22 17:48 01/03/22 17:48 Results 01/04/22 08:37 01/04/22 08:37 Cardiac Enzymes 01/03/22 Range/Units 18:06 AST 12 (5-40) units/L Coagulation 01/03/22 Range/Units 18:06 PT 14.3 (12.2-14.9) Sec. INR 1.00 (0.87-1.13) APTT 35.8 (24.2-36.6) Sec. CBC 01/03/22 01/04/22 Range/Units 18:06 08:37 WBC 5.1 10.2 (4.5-11.0) K/mm3 RBC 3.42 L 4.58 (3.65-5.03) M/mm3 Hgb 9.9 L 13.3 D (10.1-14.3) gm/dl Hct 29.9 L 40.0 D (30.3-42.9) % Plt Count 203 248 (140-440) K/mm3 Lymph # (Auto) 1.7 (1.2-5.4) K/mm3 [place] # (Auto) 0.6 (0.0-0.8) K/mm3 Eos # (Auto) 0.1 (0.0-0.4) K/mm3 Baso # (Auto) 0.0 (0.0-0.1) K/mm3 Comprehensive Metabolic Panel 01/03/22 01/04/22 Range/Units 18:06 08:37 Sodium 138 142 (137-145) mmol/L Potassium 5.6 H 5.4 H (3.6-5.0) mmol/L Chloride 104.9 102.3 (98-107) mmol/L Carbon Dioxide 25 22 (22-30) mmol/L BUN 29 H 25 H (7-17) mg/dL Creatinine 2.0 H 1.4 H (0.6-1.2) mg/dL Glucose 92 189 H (65-100) mg/dL Calcium 9.1 10.2 (8.4-10.2) mg/dL AST 12 (5-40) units/L ALT 7 (7-56) units/L Alkaline Phosphatase 67 (35-129) units/L Total Protein 6.4 (6.3-8.2) g/dL Albumin 3.6 L (3.9-5) g/dL Assessment and Plan 1. Hypotension likely secondary to intravascular depletion 2. Acute on chronic Kidney disease resolving with IV hydration 3. Altered mental status appears to have resolved patient back to her baseline 4. Coronary artery disese s/p CABG x 3 in 2011 ( SVG to OM, and PDA, with VASQUEZ to LAD ) 5. Sinus bradycardia ( Sick sinus syndrome ) 6. Type 2 Diabetes Mellitus. 7. Unspecified Dementia without behavioral abnormalities Last Echocardiogram done in the office July 2021 showed normal LV size mild concentric LVH with sclerotic Aortic valve. LVEF 50% Plan. Conservative management Nephrology noted and recommendation appreciated. Cardiac hastings stable follow up in the office
[2022-01-04] MEDS: INSULIN LISPRO 100 UNIT/ML SUB-Q SCH ×3 (16:32→22:01)
[2022-01-04] MEDS: COMBIGAN 0.2-0.5% OPHTH SOLN OU SCH ×2 (19:23→22:00)
[2022-01-05 06:03] LABS: Calcium 8.9 mg/dL (8.4-10.2)
[2022-01-05] MEDS ORDERED: DEXTROSE 50% IN WATER (25GM) 50 ML VIAL IV ONE (07:55)
--- NOTE | 2022-01-05 07:55 | Progress Note ---
Assessment and Plan Assessment and plan: 86 YO Female with Vascular Dementia, Cerebral Atherosclerosis, HTN, [place], DM presents to ED for evaluation. Patient has diminished cognition at the time my evaluation and provides minimal history. Patient reports I feel weak". Additional history provided by EMS staff, ED staff, as well as the patient's neighbor who was at patient bedside during exam and interview. As per neighbor she went to do a well check and found that the patient was weak and confused and not in her normal state of health. EMS notified and upon arrival the patient was found to be in distress with a heart rate in the 30s and systolic blood pressure in the 80s. Patient treated with atropine and transported to [facility] for further care and evaluation of the aforementioned symptoms. The patient was seen and evaluated in the emergency department. All lab and imaging studies reviewed. Patient found to have acute encephalopathy, hypotension, hyperkalemia, brash syndrome. Patient admitted to [facility] due to increased risk of worsening symptoms and for medical stabilization. Patient remains confused with diminished cognition at the time of evaluation but has a positive gag reflex and is able to protect her airway without difficulty. Prior mission on 04/13/2017 reviewed. All medication listed at time of admission has been reconciled. Advanced care planning conducted in ED. Cardiology team consulted in ED. Nephrology team consulted in ED. Past History Past Medical History: acute [place], diabetes, hypertension Past Surgical History: cholecystectomy, hysterectomy Social history: . denies: smoking, alcohol abuse, prescription drug abuse Family history: diabetes, hypertension CT scan brain negative for acute findings. 01/04: Patient was noted on EMS documentation per ED to "patient bradycardic in the field, heart rate of 38 bpm, blood pressure in the 80s/90s. EMS gave atropine x1, with improvement in blood pressure, heart rate to the mid 40s." Renal function was noted to be abnormal with Creatnine of 2 which is above her Baseline of 1. There was concern for Brash Syndrome Given the hypotension, renal insufficiency, bradycardia, potassium of 5.6, concern for symptom of bradycardia, renal insufficiency, AV amish blockade, shock, and hyperkalemia.and patient was started on IV calclium and also fluids with Atropin given. She currently has improved HR AND Bp, Will restart some of her BP meds but avoid the Calcium channel blockers and the BB for now. Will restart her Insulin regimen and adjust diet Will obtain KUB PT/OT Will transfer to Telemetry floor. Anticipate discharge in 24 hrs Tito updated. 01/05: Patient seen and examined this morning creatinine gradually creeping back up to 1.8. Fluids was discontinued yesterday. We will restart fluids still with hyperkalemia, will give additional dose of Kayexalate. May require some more IV calcium and insulin and recheck in a.m. prior to discharge if renal function has improved. Last Echocardiogram done in the office July 2021 showed normal LV size mild concentric LVH with sclerotic Aortic valve. LVEF 50% (1) Brash Syndrome Status: Acute 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 Supportive care. Maintain atropine at bedside. (2) Acute encephalopathy Status: Acute Plan to address problem: CT scan head, neuro check, seizure precautions, supportive care, fall precautions. (3) Bradycardia Status: Acute Plan to address problem: Telemetry monitoring, supportive care. Cardiology team consulted. Echocardiogram ordered and pending at time of admission. (4) Hypertension Status: Acute Qualifiers: Hypertension type: primary hypertension Qualified Code(s): I10 - Essential (primary) hypertension Plan to address problem: Monitor blood pressure every shift, continue medical management. (5) Hyperkalemia Status: Acute Plan to address problem: Calcium gluconate, Kayexalate, BMP, repeat BMP in a.m. (6) Vascular dementia Status: Acute Qualifiers: Dementia behavioral disturbance: without behavioral disturbance Qualified Code(s): F01.50 - Vascular dementia without behavioral disturbance Plan to address problem: Verbal prompting, verbal redirection, benzodiazepine therapy as clinically indicated. (7) Cerebral atherosclerosis Status: Acute Plan to address problem: Risk factor reduction, supportive care, antiplatelet therapy as clinically indicated. (8) Diabetes Mellitus (9) Abdominal Pain - (10) Coronary artery disese s/p CABG x 3 in 2012 ( SVG to OM, and PDA, with VASQUEZ to LAD ) (11) Advance care planning Status: Acute Plan to address problem: Disease education done, care plan discussed, diagnoses discussed, prognosis discussed, patient is full code. Patient caregiver acknowledges understanding and agreement care plan, +30 minutes. (11) DVT (12) Preventative health care Status: Acute Plan to address problem: Patient and caregiver counseled regarding home safety precautions, outpatient follow-up with primary care physician for all age and risk factor appropriate screening test. +30 minutes. History Interval history: Patient seen and examined, resting comfortable. Hospitalist Physical - Physical exam Narrative exam: General appearance: Present: No distress this am - EENT Eyes: Present: PERRL ENT: hearing intact, clear oral mucosa, hearing decreased - Neck Neck: Present: supple, normal ROM - Respiratory Respiratory effort: normal Respiratory: bilateral: CTA - Cardiovascular Rhythm: Regular - Extremities Extremities: pulses symmetrical, No edema Peripheral Pulses: within normal limits - Abdominal General gastrointestinal: Present: soft, non-tender, non-distended, normal bowel sounds. Increased abdominal girth Female genitourinary: Present: normal - Integumentary Integumentary: Present: clear, dry - Musculoskeletal Musculoskeletal: generalized weakness - Psychiatric Psychiatric: no appropriate mood/affect, no intact judgment & insight - Neurologic Neurologic: CNII-XII intact, no focal deficits, moves all extremities, no gait normal - Constitutional Vitals: Temp Pulse Resp BP Pulse Ox 98.0 F 67 17 135/33 100 01/05/22 03:30 01/05/22 03:30 01/05/22 03:30 01/05/22 03:30 01/05/22 03:30 General appearance: Present: mild distress HEART Score - HEART Score Troponin: Troponin T 0.011 ng/mL (0.00-0.029) 01/03/22 18:06 Results - Labs CBC & Chem 7: 01/04/22 08:37 01/05/22 05:04 Labs: Laboratory Last Values WBC 10.2 K/mm3 (4.5-11.0) 01/04/22 08:37 RBC 4.58 M/mm3 (3.65-5.03) 01/04/22 08:37 Hgb 13.3 gm/dl (10.1-14.3) D 01/04/22 08:37 Hct 40.0 % (30.3-42.9) D 01/04/22 08:37 MCV 87 fl (79-97) 01/04/22 08:37 MCH 29 pg (28-32) 01/04/22 08:37 MCHC 33 % (30-34) 01/04/22 08:37 RDW 14.8 % (13.2-15.2) 01/04/22 08:37 Plt Count 248 K/mm3 (140-440) 01/04/22 08:37 Lymph % (Auto) 33.5 % (13.4-35.0) 01/03/22 18:06 [place] % (Auto) 11.3 % (0.0-7.3) H 01/03/22 18:06 Eos % (Auto) 2.5 % (0.0-4.3) 01/03/22 18:06 Baso % (Auto) 0.7 % (0.0-1.8) 01/03/22 18:06 Lymph # (Auto) 1.7 K/mm3 (1.2-5.4) 01/03/22 18:06 [place] # (Auto) 0.6 K/mm3 (0.0-0.8) 01/03/22 18:06 Eos # (Auto) 0.1 K/mm3 (0.0-0.4) 01/03/22 18:06 Baso # (Auto) 0.0 K/mm3 (0.0-0.1) 01/03/22 18:06 Add Manual Diff Complete 01/04/22 08:37 Total Counted 100 01/04/22 08:37 Seg Neutrophils % Bulk Fluids Handler 01/04/22 08:37 Band Neutrophils % 0 % 01/04/22 08:37 Lymphocytes % (Manual) 2.0 % (13.4-35.0) L 01/04/22 08:37 Reactive Lymphs % (Man) 0 % 01/04/22 08:37 Monocytes % (Manual) 2.0 % (0.0-7.3) 01/04/22 08:37 Eosinophils % (Manual) 0 % (0.0-4.3) 01/04/22 08:37 Basophils % (Manual) 0 % (0.0-1.8) 01/04/22 08:37 Metamyelocytes % 0 % 01/04/22 08:37 Myelocytes % 0 % 01/04/22 08:37 Promyelocytes % 0 % 01/04/22 08:37 Blast Cells % 0 % 01/04/22 08:37 Nucleated RBC % Not Reportable 01/04/22 08:37 Seg Neutrophils # 2.6 K/mm3 (1.8-7.7) 01/03/22 18:06 Seg Neutrophils # Man 9.8 K/mm3 (1.8-7.7) H 01/04/22 08:37 Band Neutrophils # 0.0 K/mm3 01/04/22 08:37 Lymphocytes # (Manual) 0.2 K/mm3 (1.2-5.4) L 01/04/22 08:37 Abs React Lymphs (Man) 0.0 K/mm3 01/04/22 08:37 Monocytes # (Manual) 0.2 K/mm3 (0.0-0.8) 01/04/22 08:37 Eosinophils # (Manual) 0.0 K/mm3 (0.0-0.4) 01/04/22 08:37 Basophils # (Manual) 0.0 K/mm3 (0.0-0.1) 01/04/22 08:37 Metamyelocytes # 0.0 K/mm3 01/04/22 08:37 Myelocytes # 0.0 K/mm3 01/04/22 08:37 Promyelocytes # 0.0 K/mm3 01/04/22 08:37 Blast Cells # 0.0 K/mm3 01/04/22 08:37 WBC Morphology Not Reportable 01/04/22 08:37 WBC Morphology TNR 01/04/22 08:37 Hypersegmented Neuts Not Reportable 01/04/22 08:37 Hyposegmented Neuts Not Reportable 01/04/22 08:37 Hypogranular Neuts Not Reportable 01/04/22 08:37 Smudge Cells Not Reportable 01/04/22 08:37 Toxic Granulation Not Reportable 01/04/22 08:37 Toxic Vacuolation Not Reportable 01/04/22 08:37 Dohle Bodies Not Reportable 01/04/22 08:37 Pelger-Huet Anomaly Not Reportable 01/04/22 08:37 Addie Rods Not Reportable 01/04/22 08:37 Platelet Estimate Consistent w auto 01/04/22 08:37 Clumped Platelets Not Reportable 01/04/22 08:37 Plt Clumps, EDTA Not Reportable 01/04/22 08:37 Large Platelets Not Reportable 01/04/22 08:37 Giant Platelets Not Reportable 01/04/22 08:37 Platelet Satelliting Not Reportable 01/04/22 08:37 Plt Morphology Comment Not Reportable 01/04/22 08:37 RBC Morphology Normal 01/04/22 08:37 Dimorphic RBCs Not Reportable 01/04/22 08:37 Polychromasia Not Reportable 01/04/22 08:37 Hypochromasia Not Reportable 01/04/22 08:37 Poikilocytosis Not Reportable 01/04/22 08:37 Anisocytosis Not Reportable 01/04/22 08:37 Microcytosis Not Reportable 01/04/22 08:37 Macrocytosis Not Reportable 01/04/22 08:37 Spherocytes Not Reportable 01/04/22 08:37 Pappenheimer Bodies Not Reportable 01/04/22 08:37 Sickle Cells Not Reportable 01/04/22 08:37 Target Cells Not Reportable 01/04/22 08:37 Tear Drop Cells Not Reportable 01/04/22 08:37 Ovalocytes Not Reportable 01/04/22 08:37 Helmet Cells Not Reportable 01/04/22 08:37 Rodriguez-Minot Bodies Not Reportable 01/04/22 08:37 [place] Rings Not Reportable 01/04/22 08:37 Ronny Cells Not Reportable 01/04/22 08:37 Bite Cells Not Reportable 01/04/22 08:37 Crenated Cell Not Reportable 01/04/22 08:37 Elliptocytes Not Reportable 01/04/22 08:37 Acanthocytes (Spur) Not Reportable 01/04/22 08:37 Rouleaux Not Reportable 01/04/22 08:37 Hemoglobin C Crystals Not Reportable 01/04/22 08:37 Schistocytes Not Reportable 01/04/22 08:37 Malaria parasites Not Reportable 01/04/22 08:37 Zbigniew Bodies Not Reportable 01/04/22 08:37 Hem Pathologist Commnt No 01/04/22 08:37 PT 14.3 Sec. (12.2-14.9) 01/03/22 18:06 INR 1.00 (0.87-1.13) 01/03/22 18:06 APTT 35.8 Sec. (24.2-36.6) 01/03/22 18:06 Sodium 142 mmol/L (137-145) 01/05/22 05:04 Potassium 5.6 mmol/L (3.6-5.0) H 01/05/22 05:04 Chloride 107.2 mmol/L (98-107) H 01/05/22 05:04 Carbon Dioxide 25 mmol/L (22-30) 01/05/22 05:04 Anion Gap 15 mmol/L 01/05/22 05:04 BUN 30 mg/dL (7-17) H 01/05/22 05:04 Creatinine 1.8 mg/dL (0.6-1.2) H 01/05/22 05:04 Estimated GFR 32 ml/min 01/05/22 05:04 BUN/Creatinine Ratio 17 % 01/05/22 05:04 Glucose 123 mg/dL (65-100) H 01/05/22 05:04 POC Glucose 121 mg/dL (70-105) H 01/04/22 20:11 Lactic Acid 1.00 mmol/L (0.7-2.0) 01/03/22 18:06 Calcium 8.9 mg/dL (8.4-10.2) 01/05/22 05:04 Total Bilirubin 0.30 mg/dL (0.1-1.2) 01/03/22 18:06 AST 12 units/L (5-40) 01/03/22 18:06 ALT 7 units/L (7-56) 01/03/22 18:06 Alkaline Phosphatase 67 units/L (35-129) 01/03/22 18:06 Ammonia 22.0 umol/L (25-60) L 01/03/22 18:06 Total Creatine Kinase 60 units/L (30-135) 01/03/22 18:06 Troponin T 0.011 ng/mL (0.00-0.029) 01/03/22 18:06 Total Protein 6.4 g/dL (6.3-8.2) 01/03/22 18:06 Albumin 3.6 g/dL (3.9-5) L 01/03/22 18:06 Albumin/Globulin Ratio 1.3 % 01/03/22 18:06 TSH 2.370 mlU/mL (0.270-4.200) 01/03/22 18:06 Urine Color Yellow (Yellow) 01/04/22 03:30 Urine Turbidity Slightly cloudy (Clear) 01/04/22 03:30 Ur Protein (Man) 1+ mg/dL (Negative) 01/04/22 03:30 Ur Ketones (Man) 5mg/dl (Negative) 01/04/22 03:30 Ur Nitrite (Man) Negative (Negative) 01/04/22 03:30 Ur Reducing Substances Not Reportable 01/04/22 03:30 Urine Bilirubin (Man) Negative (Negative) 01/04/22 03:30 Urine Ictotest Not Reportable 01/04/22 03:30 Leukocyte Esterase (Man) Negative (Negative) 01/04/22 03:30 Urine WBC (Auto) < 1.0 /HPF (0.0-6.0) 01/04/22 03:30 Urine RBC (Auto) 2.0 /HPF (0.0-6.0) 01/04/22 03:30 U Epithel Cells (Auto) 1.0 /HPF (0-13.0) 01/04/22 03:30 Urine Bacteria (Auto) 1+ /HPF (Negative) 01/04/22 03:30 Urine RBC (Manual) Negative (Negative) 01/04/22 03:30 Urine Mucus Few /HPF 01/04/22 03:30 Salicylates < 0.3 mg/dL (2.8-20.0) L 01/03/22 18:06 Acetaminophen 5.0 ug/mL (10.0-30.0) L 01/03/22 18:06 Plasma/Serum Alcohol < 0.01 % (0-0.07) 01/03/22 18:06 Blood Type O POSITIVE 01/03/22 18:06 Antibody Screen Negative 01/03/22 18:06 Seals/IV: Voiding Method External Female Catheter Active Medications - Current Medications Current Medications: Generic Name Dose Route Start Last Admin Trade Name Freq PRN Reason Stop Dose Admin Acetaminophen 650 mg 01/03/22 19:30 01/04/22 05:09 Acetaminophen 325 Mg Tab PO 650 mg Q4H PRN Administration Pain MILD(1-3)/Fever >100.5/FLORES Albuterol 2.5 mg 01/03/22 19:30 Albuterol 2.5 Mg/3 Ml Nebu IH Q4HRT PRN Shortness Of Breath Albuterol/Ipratropium 1 ampul 01/04/22 14:00 01/04/22 21:02 Ipratropium/Albuterol Sulfate 3 Ml Ampul.Neb IH 1 ampul Q6HRT DUANE Administration Amlodipine Besylate 2.5 mg 01/05/22 10:00 Amlodipine 5 Mg Tab PO QDAY DUANE Brimonidine/Timolol 1 drops 01/04/22 10:00 01/04/22 22:00 Combigan 0.2-0.5% Ophth Soln OU 1 drops Q12HR DUANE Administration Clopidogrel Bisulfate 75 mg 01/04/22 10:00 01/04/22 10:35 Clopidogrel 75 Mg Tab PO 75 mg QDAY DUANE Administration Dextrose 50 ml 01/04/22 08:36 Dextrose 50% In Water (25gm) 50 Ml Syringe IV Q30MIN PRN Hypoglycemia Protocol Famotidine 20 mg 01/04/22 10:00 01/04/22 10:35 Famotidine 20 Mg Tab PO 20 mg QDAY DUANE Administration Hydralazine HCl 50 mg 01/04/22 10:00 01/04/22 22:00 Hydralazine 25 Mg Tab PO 50 mg Q8HR DUANE Administration Hydromorphone HCl 0.5 mg 01/03/22 19:30 01/04/22 02:02 Hydromorphone 0.5 Mg/0.5 Ml Inj IV 0.5 mg Q23H PRN Administration Pain , Severe (7-10) Sodium Chloride 1,000 mls @ 75 mls/hr 01/05/22 08:00 Nacl 0.9% 1000 Ml IV DIRECT [facility] Insulin Human Lispro 0 unit 01/04/22 11:30 01/04/22 22:01 Insulin Lispro 100 Unit/Ml SUB-Q Not Given ACHS [facility] Protocol Isosorbide Dinitrate 40 mg 01/04/22 10:00 01/04/22 21:58 Isosorbide Dinitrate 20 Mg Tab PO 40 mg BID DUANE Administration Ondansetron HCl 4 mg 01/03/22 19:30 01/04/22 08:54 Ondansetron 4 Mg/2 Ml Inj IV 4 mg Q8H PRN Administration Nausea And Vomiting Oxycodone/Acetaminophen 1 tab 01/03/22 19:30 01/04/22 05:10 Oxycodone /Acetaminophen 5-325mg Tab PO 1 tab Q16H PRN Administration Pain, Moderate (4-6) Sodium Chloride 10 ml 01/03/22 22:00 01/04/22 22:01 Sodium Chloride 0.9% 10 Ml Flush Syringe IV 10 ml BID DUANE Administration Sodium Chloride 10 ml 01/03/22 19:30 Sodium Chloride 0.9% 10 Ml Flush Syringe IV PRN PRN LINE FLUSH Sodium Polystyrene Sulfonate 30 gm 01/05/22 07:52 Sodium Polystyrene 15 Gm/60 Ml Oral Liqd PO 01/05/22 07:53 ONCE ONE
[2022-01-05] MEDS ORDERED: CALCIUM GLUCONATE 1,000 MG in SODIUM CHLORIDE 0.9% 100 ML IV ONE (07:56)
[2022-01-05] MEDS: IPRATROPIUM/ALBUTEROL SULFATE 3 ML AMPUL.NEB IH SCH ×4 (08:20→20:20)
[2022-01-05] MEDS ORDERED: INSULIN REGULAR, HUMAN 100 UNITS/1 ML IV SCH (08:30)
[2022-01-05] MEDS: hydrALAZINE 25 MG TAB PO SCH ×3 (08:53→21:43)
[2022-01-05] MEDS ORDERED: SODIUM POLYSTYRENE 15 GM/60 ML ORAL LIQD PO SCH (09:00)
[2022-01-05] MEDS ORDERED: DEXTROSE 50% IN WATER (25GM) 50 ML SYRINGE IV SCH (09:00)
[2022-01-05] MEDS: INSULIN LISPRO 100 UNIT/ML SUB-Q SCH ×4 (09:03→22:22)
[2022-01-05] MEDS ORDERED: CALC GLUCONATE 1GM/NS 100 ML 1 GM/100 ML BAG IV ONE (09:30)
--- NOTE | 2022-01-05 09:55 | Progress Note ---
Assessment and Plan 1. Hypotension likely secondary to intravascular depletion 2. Acute on chronic Kidney disease resolving with IV hydration 3. Altered mental status appears to have resolved patient back to her baseline 4. Coronary artery disese s/p CABG x 3 in 2012 ( SVG to OM, and PDA, with VASQUEZ to LAD ) 5. Sinus bradycardia ( Sick sinus syndrome ) 6. Type 2 Diabetes Mellitus. 7. Unspecified Dementia without behavioral abnormalities 8. Hyperkalemia Last Echocardiogram done in the office July 2021 showed normal LV size mild concentric LVH with sclerotic Aortic valve. LVEF 50% Plan. Conservative management Nephrology noted and recommendation appreciated. hyperkalemia today of 5.6 management as per PCP and Nephrology. Cardiac hastings stable follow up in the office Subjective Date of service: 01/05/22 Interval history: No new cardiac complains. Objective Vital Signs Temp Pulse Pulse Resp Resp BP Pulse Ox 01/05/22 08:34 98.2 F 81 16 145/48 94 01/05/22 05:46 20 01/05/22 05:45 20 131/55 01/05/22 03:30 98.0 F 67 17 135/33 100 01/05/22 02:15 58 L 16 01/04/22 23:21 97.8 F 61 18 133/35 95 01/04/22 22:00 88 187/65 94 01/04/22 21:58 91 H 187/65 01/04/22 21:03 98 01/04/22 21:02 94 H 16 01/04/22 19:31 98.1 F 91 H 18 187/65 94 01/04/22 15:54 98.0 F 93 H 18 159/58 95 01/04/22 15:00 97 01/04/22 14:00 99 H 01/04/22 13:14 83 18 01/04/22 12:18 97 01/04/22 11:33 98.0 F 95 H 18 104/84 95 01/04/22 11:00 203/91 01/04/22 10:50 97 H 26 H 100 01/04/22 10:43 96 H 29 H 99 01/04/22 10:41 99 H 193/89 01/04/22 10:35 97 H 193/89 - Physical Examination General: Appears Well, No Apparent Distress HEENT: Positive: PERRL, Mucus Membranes Moist Neck: Positive: neck supple, trachea midline. Negative: JVD/HJR Cardiac: Positive: Regular Rate, S1/S2, S3, PMI, Laterally Displaced. Negative: S4 Lungs: Positive: clear to auscultation, No Wheeze, Rales, Rhonchi Neuro: Positive: Grossly Intact Abdomen: Positive: Unremarkable, Soft, Active Bowel Sounds Extremities: Absent: edema - Labs and Meds Comprehensive Metabolic Panel 01/05/22 Range/Units 05:04 Sodium 142 (137-145) mmol/L Potassium 5.6 H (3.6-5.0) mmol/L Chloride 107.2 H (98-107) mmol/L Carbon Dioxide 25 (22-30) mmol/L BUN 30 H (7-17) mg/dL Creatinine 1.8 H (0.6-1.2) mg/dL Glucose 123 H (65-100) mg/dL Calcium 8.9 (8.4-10.2) mg/dL - Telemetry EKG Rhythm: Sinus Rhythm
[2022-01-05] MEDS: SODIUM CHLORIDE 0.9% 1000 ML 1,000 ML IV SCH (10:13)
[2022-01-05] MEDS: amLODIPine 5 MG TAB PO SCH (10:14)
[2022-01-05] MEDS: FAMOTIDINE 20 MG TAB PO SCH (10:14)
[2022-01-05] MEDS: ISOSORBIDE DINITRATE 20 MG TAB PO SCH ×2 (10:14→21:44)
[2022-01-05] MEDS: CLOPIDOGREL 75 MG TAB PO SCH (10:14)
[2022-01-05] MEDS: COMBIGAN 0.2-0.5% OPHTH SOLN OU SCH ×2 (10:15→21:43)
--- NOTE | 2022-01-05 12:00 | Progress Note ---
Subjective Interval history: Assessment and plan Stage IV chronic kidney disease, patient is currently being followed in our office, current creatinine is actually reflection of her baseline which is currently around 1.8, yesterday's creatinine was not, reflective of her actual renal function Hyperkalemia, being treated conservatively patient was admitted with bradycardia currently being followed by cardiology has been placed on hydralazine, heart rate has been improving, She has received treatment for hyperkalemia, if no better can be considered for Lokelma 3 times or 4 times a week I believe hyperkalemia may have been unmasking her sick sinus syndrome #The blood pressure has been stable [place] to have sick sinus syndrome by cardiology Patient was adequately counseled and educated regarding all the renal related issues, relevant renal related labs were also discussed and all questions were answered If there are any renal related issues in regards to this patient please feel free to reach out without any hesitation at [phone] We'll continue to follow and make recommendation for renal standpoint. Progress note by: Pedrito Pereira MD [address] [place] [id number] Tele [phone] [email or web address] Patient was seen today for follow-up of multiple renal related issues No complaints of any chest pain pressure or shortness of breath Interdisciplinary notes that also reviewed Events of 24 hours vitals labs intake output medications were reviewed Past medical history: Reviewed Family history: Reviewed Social history: Reviewed Allergies: Reviewed Physical examination: Vitals: Reviewed HEENT: No pallor or icterus oral mucosa moist Neck: Supple no JVD no thyromegaly Chest: Bilateral clear to auscultation anteriorly Heart: Regular rate and rhythm S1-S2 heard no S3-S4 Abdomen: Soft nontender no voluntary guarding rigidity rebound Extremity: Dry skin less than 1+ peripheral edema Psychiatric: No evidence of agitation and aggression noted Dermatology: No petechial rashes Labs and x-rays: Reviewed from today Objective - Vital Signs Vital signs: Vital Signs - 12hr 01/05/22 01/05/22 01/05/22 02:15 03:30 05:45 Temperature 98.0 F Pulse Rate 67 Pulse Rate [ 58 L Anterior Bilateral Throughout] Respiratory 17 20 Rate Respiratory 16 Rate [Anterior Bilateral Throughout] Blood Pressure 135/33 131/55 O2 Sat by Pulse 100 Oximetry 01/05/22 01/05/22 01/05/22 05:46 08:34 10:00 Temperature 98.2 F Pulse Rate 81 71 Pulse Rate [ Anterior Bilateral Throughout] Respiratory 20 16 Rate Respiratory Rate [Anterior Bilateral Throughout] Blood Pressure 145/48 O2 Sat by Pulse 94 98 Oximetry - Lab 01/04/22 08:37 01/05/22 05:04 Most recent lab results Calcium 8.9 mg/dL (8.4-10.2) 01/05/22 05:04 Medications & Allergies - Medications Allergies/Adverse Reactions: Allergies latex Allergy (Verified 01/04/22 09:00) Rash Per [place] Home Medications: Home Medications Medication Instructions Recorded Confirmed Last Taken Type Brimonidine Tartrate/Timolol 10 ml OP BID 01/05/22 01/05/22 12/30/21 History [Combigan 0.2%-0.5% Eye Drops] Clopidogrel [Plavix] 75 mg PO QDAY 01/05/22 01/05/22 12/30/21 History HYDROcodone/ACETAMINOPHEN 1 each PO BID 01/05/22 01/05/22 12/30/21 History [Verdrocet 2.5-325 mg TAB] Insulin Detemir [Levemir Flextouch] 15 unit SQ DAILY 01/05/22 01/05/22 12/30/21 History Metoclopramide [Reglan] 10 mg PO BID 01/05/22 01/05/22 12/30/21 History Pantoprazole [Protonix] 40 mg PO QDAY 01/05/22 01/05/22 12/30/21 History amLODIPine [Norvasc] 5 mg PO DAILY 01/05/22 01/05/22 12/30/21 History Active Medications: Generic Name Dose Route Start Last Admin Trade Name Freq PRN Reason Stop Dose Admin Acetaminophen 650 mg 01/03/22 19:30 01/04/22 05:09 Acetaminophen 325 Mg Tab PO 650 mg Q4H PRN Administration Pain MILD(1-3)/Fever >100.5/FLORES Albuterol 2.5 mg 01/03/22 19:30 Albuterol 2.5 Mg/3 Ml Nebu IH Q4HRT PRN Shortness Of Breath Albuterol/Ipratropium 1 ampul 01/04/22 14:00 01/05/22 08:20 Ipratropium/Albuterol Sulfate 3 Ml Ampul.Neb IH 1 ampul Q6HRT DUANE Administration Amlodipine Besylate 2.5 mg 01/05/22 10:00 01/05/22 10:14 Amlodipine 5 Mg Tab PO 2.5 mg QDAY DUANE Administration Brimonidine/Timolol 1 drops 01/04/22 10:00 01/05/22 10:15 Combigan 0.2-0.5% Ophth Soln OU 1 drops Q12HR DUANE Administration Clopidogrel Bisulfate 75 mg 01/04/22 10:00 01/05/22 10:14 Clopidogrel 75 Mg Tab PO 75 mg QDAY DUANE Administration Dextrose 50 ml 01/04/22 08:36 Dextrose 50% In Water (25gm) 50 Ml Syringe IV Q30MIN PRN Hypoglycemia Protocol Dextrose 100 ml 01/05/22 09:00 01/05/22 10:13 Dextrose 50% In Water (25gm) 50 Ml Syringe IV 01/05/22 14:00 100 ml ONCE@0900 DUANE Administration Famotidine 20 mg 01/04/22 10:00 01/05/22 10:14 Famotidine 20 Mg Tab PO 20 mg QDAY DUANE Administration Hydralazine HCl 50 mg 01/04/22 10:00 01/05/22 08:53 Hydralazine 25 Mg Tab PO Not Given Q8HR DUANE Hydromorphone HCl 0.5 mg 01/03/22 19:30 01/04/22 02:02 Hydromorphone 0.5 Mg/0.5 Ml Inj IV 0.5 mg Q23H PRN Administration Pain , Severe (7-10) Sodium Chloride 1,000 mls @ 75 mls/hr 01/05/22 08:30 01/05/22 10:13 Nacl 0.9% 1000 Ml IV 75 mls/hr DIRECT DUANE Administration Insulin Human Lispro 0 unit 01/04/22 11:30 01/05/22 09:03 Insulin Lispro 100 Unit/Ml SUB-Q Not Given ACHS DUANE Protocol Insulin Human Regular 10 units 01/05/22 08:30 01/05/22 10:14 Insulin Regular, Human 100 Units/1 Ml IV 01/05/22 12:30 10 units ONCE@0830 DUANE Administration Isosorbide Dinitrate 40 mg 01/04/22 10:00 01/05/22 10:14 Isosorbide Dinitrate 20 Mg Tab PO 40 mg BID DUANE Administration Ondansetron HCl 4 mg 01/03/22 19:30 01/04/22 08:54 Ondansetron 4 Mg/2 Ml Inj IV 4 mg Q8H PRN Administration Nausea And Vomiting Oxycodone/Acetaminophen 1 tab 01/03/22 19:30 01/04/22 05:10 Oxycodone /Acetaminophen 5-325mg Tab PO 1 tab Q16H PRN Administration Pain, Moderate (4-6) Sodium Chloride 10 ml 01/03/22 22:00 01/04/22 22:01 Sodium Chloride 0.9% 10 Ml Flush Syringe IV 10 ml BID DUANE Administration Sodium Chloride 10 ml 01/03/22 19:30 Sodium Chloride 0.9% 10 Ml Flush Syringe IV PRN PRN LINE FLUSH Sodium Polystyrene Sulfonate 30 gm 01/05/22 09:00 01/05/22 10:13 Sodium Polystyrene 15 Gm/60 Ml Oral Liqd PO 01/05/22 13:00 30 gm ONCE@0900 DUANE Administration
--- NOTE | 2022-01-05 16:53 | Electrocardiograph Report ---
[facility] Test Date: 2022-01-03 Test Time: 17:19:59 Pat Name: WYATT GARCIA Department: Room: A469 1 Gender: F Lathe Machinist: ADRIEL : 1935 Requested By: JUANITA RDZ Order Number: [id number] Reading MD: Hazel Agosto Measurements Intervals Gray Rate: 43 P: 41 IN: 146 QRS: 2 QRSD: 85 T: 143 QT: 521 QTc: 441 Interpretive Statements Sinus bradycardia Probable left atrial enlargement Probable left ventricular hypertrophy Nonspecific T wave abnormality No previous ECG available for comparison Electronically Signed On 01-05-2022 16:52:50 EDT by Hazel Agosto
[2022-01-06] MEDS: SODIUM CHLORIDE 0.9% 1000 ML 1,000 ML IV SCH (01:51)
[2022-01-06 05:56] LABS: Hematocrit 36.1 % (30.3-42.9); Hemoglobin 11.6 gm/dl (10.1-14.3); Mean Corpuscular HGB Conc 32 % (30-34); Mean Corpuscular Volume 89 fl (79-97); Platelet Count 212 K/mm3 (140-440); Red Blood Count 4.07 M/mm3 (3.65-5.03); Red Cell Distribution Width 14.3 % (13.2-15.2)
[2022-01-06] MEDS: hydrALAZINE 25 MG TAB PO SCH ×2 (06:16→13:15)
[2022-01-06 06:19] LABS: Calcium 9.1 mg/dL (8.4-10.2)
--- NOTE | 2022-01-06 09:27 | Progress Note ---
Subjective Date of service: 01/06/22 Principal diagnosis: tracie Interval history: Impression: 1. Hypotension likely secondary to intravascular depletion 2. Acute on chronic Kidney disease resolving with IV hydration 3. Altered mental status appears to have resolved patient back to her baseline 4. Coronary artery disese s/p CABG x 3 in 2011 ( SVG to OM, and PDA, with VASQUEZ to LAD ) 5. Sinus bradycardia ( Sick sinus syndrome ) 6. Type 2 Diabetes Mellitus. 7. Unspecified Dementia without behavioral abnormalities 8. Hyperkalemia Assessment and plan TRACIE on Stage 3 chronic kidney disease, patient is currently being followed in our office, current creatinine is actually reflection of her baseline which is currently around 1.7 to1.8 Hyperkalemia, being treated conservatively patient was admitted with bradycardia currently being followed by cardiology has been placed on hydralazine, heart rat e has been improving, k is better today can be considered for Lokelma 3 times or 4 times a week I believe hyperkalemia may have been unmasking her sick sinus syndrome #The blood pressure has been stable Idamay to have sick sinus syndrome by cardiology Patient was adequately counseled and educated regarding all the renal related issues, relevant renal related labs were also discussed and all questions were answered Ok to dc from renal standpoint SUbjective: Patient was seen today for follow-up of multiple renal related issues No complaints of any chest pain pressure or shortness of breath Interdisciplinary notes that also reviewed Events of 24 hours vitals labs intake output medications were reviewed Past medical history: Reviewed Family history: Reviewed Social history: Reviewed Allergies: Reviewed Physical examination: Vitals: Reviewed HEENT: No pallor or icterus oral mucosa moist Neck: Supple no JVD no thyromegaly Chest: Bilateral clear to auscultation anteriorly Heart: Regular rate and rhythm S1-S2 heard no S3-S4 Abdomen: Soft nontender no voluntary guarding rigidity rebound Extremity: Dry skin less than 1+ peripheral edema Psychiatric: No evidence of agitation and aggression noted Dermatology: No petechial rashes Labs and x-rays: Reviewed from today Objective - Vital Signs Vital signs: Vital Signs - 12hr 01/05/22 01/05/22 01/05/22 21:43 21:44 22:00 Temperature Pulse Rate 83 83 71 Respiratory Rate Blood Pressure 187/61 187/61 O2 Sat by Pulse 96 Oximetry 01/05/22 01/06/22 01/06/22 23:23 00:59 03:38 Temperature 98.0 F 98.6 F Pulse Rate 71 78 Respiratory 16 18 Rate Blood Pressure 149/43 192/55 O2 Sat by Pulse 96 97 99 Oximetry 01/06/22 01/06/22 01/06/22 05:08 06:16 09:10 Temperature Pulse Rate 89 89 Respiratory 20 Rate Blood Pressure 185/74 185/74 O2 Sat by Pulse 95 97 Oximetry - Lab 01/06/22 05:26 01/06/22 05:26 Most recent lab results Calcium 9.1 mg/dL (8.4-10.2) 01/06/22 05:26 Medications & Allergies - Medications Allergies/Adverse Reactions: Allergies latex Allergy (Verified 01/04/22 09:00) Rash Per [place] Home Medications: Home Medications Medication Instructions Recorded Confirmed Last Taken Type Brimonidine Tartrate/Timolol 10 ml OP BID 01/05/22 01/05/22 12/30/21 History [Combigan 0.2%-0.5% Eye Drops] Clopidogrel [Plavix] 75 mg PO QDAY 01/05/22 01/05/22 12/30/21 History HYDROcodone/ACETAMINOPHEN 1 each PO BID 01/05/22 01/05/22 12/30/21 History [Verdrocet 2.5-325 mg TAB] Insulin Detemir [Levemir Flextouch] 15 unit SQ DAILY 01/05/22 01/05/22 12/30/21 History Metoclopramide [Reglan] 10 mg PO BID 01/05/22 01/05/22 12/30/21 History Pantoprazole [Protonix] 40 mg PO QDAY 01/05/22 01/05/22 12/30/21 History amLODIPine [Norvasc] 5 mg PO DAILY 01/05/22 01/05/22 12/30/21 History Active Medications: Generic Name Dose Route Start Last Admin Trade Name Freq PRN Reason Stop Dose Admin Acetaminophen 650 mg 01/03/22 19:30 09/04/22 05:09 Acetaminophen 325 Mg Tab PO 650 mg Q4H PRN Administration Pain MILD(1-3)/Fever >100.5/FLORES Albuterol 2.5 mg 01/03/22 19:30 Albuterol 2.5 Mg/3 Ml Nebu IH Q4HRT PRN Shortness Of Breath Amlodipine Besylate 2.5 mg 01/05/22 10:00 01/05/22 10:14 Amlodipine 5 Mg Tab PO 2.5 mg QDAY DUANE Administration Brimonidine/Timolol 1 drops 01/04/22 10:00 01/05/22 21:43 Combigan 0.2-0.5% Ophth Soln OU 1 drops Q12HR DUANE Administration Clopidogrel Bisulfate 75 mg 01/04/22 10:00 01/05/22 10:14 Clopidogrel 75 Mg Tab PO 75 mg QDAY DUANE Administration Dextrose 50 ml 01/04/22 08:36 Dextrose 50% In Water (25gm) 50 Ml Syringe IV Q30MIN PRN Hypoglycemia Protocol Famotidine 20 mg 01/04/22 10:00 01/05/22 10:14 Famotidine 20 Mg Tab PO 20 mg QDAY DUANE Administration Hydralazine HCl 50 mg 01/04/22 10:00 01/06/22 06:16 Hydralazine 25 Mg Tab PO 50 mg Q8HR DUANE Administration Hydromorphone HCl 0.5 mg 01/03/22 19:30 01/04/22 02:02 Hydromorphone 0.5 Mg/0.5 Ml Inj IV 0.5 mg Q23H PRN Administration Pain , Severe (7-10) Sodium Chloride 1,000 mls @ 75 mls/hr 01/05/22 08:30 01/06/22 01:51 Nacl 0.9% 1000 Ml IV 75 mls/hr DIRECT DUANE Administration Insulin Human Lispro 0 unit 01/04/22 11:30 01/05/22 22:22 Insulin Lispro 100 Unit/Ml SUB-Q Not Given ACHS DUANE Protocol Isosorbide Dinitrate 40 mg 01/04/22 10:00 01/05/22 21:44 Isosorbide Dinitrate 20 Mg Tab PO 40 mg BID DUANE Administration Ondansetron HCl 4 mg 01/03/22 19:30 01/04/22 08:54 Ondansetron 4 Mg/2 Ml Inj IV 4 mg Q8H PRN Administration Nausea And Vomiting Oxycodone/Acetaminophen 1 tab 01/03/22 19:30 01/04/22 05:10 Oxycodone /Acetaminophen 5-325mg Tab PO 1 tab Q16H PRN Administration Pain, Moderate (4-6) Sodium Chloride 10 ml 01/03/22 22:00 01/05/22 21:44 Sodium Chloride 0.9% 10 Ml Flush Syringe IV 10 ml BID DUANE Administration Sodium Chloride 10 ml 01/03/22 19:30 Sodium Chloride 0.9% 10 Ml Flush Syringe IV PRN PRN LINE FLUSH
[2022-01-06] MEDS: INSULIN LISPRO 100 UNIT/ML SUB-Q SCH ×2 (11:14→13:14)
[2022-01-06] MEDS: ISOSORBIDE DINITRATE 20 MG TAB PO SCH (11:14)
[2022-01-06] MEDS: FAMOTIDINE 20 MG TAB PO SCH (11:14)
[2022-01-06] MEDS: amLODIPine 5 MG TAB PO SCH (11:14)
[2022-01-06] MEDS: CLOPIDOGREL 75 MG TAB PO SCH (11:14)
[2022-01-06] MEDS: COMBIGAN 0.2-0.5% OPHTH SOLN OU SCH (11:14)
--- NOTE | 2022-01-06 12:27 | Discharge Summary ---
Providers - Providers Date of Admission: 01/03/22 19:30 Date of discharge: 01/06/22 Attending physician: ARASH HOLDER MD 01/03/22 19:10 Consult to Physician [CONS] Urgent Comment: Consulting Provider: DAV AVILA Physician Instructions: Reason For Exam: brash syndrome 01/04/22 10:24 Consult to Physician [CONS] Routine Comment: Consulting Provider: JESSICA POLANCO Physician Instructions: Reason For Exam: hypotension, Bradycardia 01/04/22 12:26 Occupational Therapy Evaluate and Treat [CONS] Routine Comment: Reason For Exam: DEBILITY Physical Therapy Evaluation and Treat [CONS] Routine Comment: Reason For Exam: DEBILITY Primary care physician: ARAM SALMERON Hospitalization Reason for admission: weakness Condition: Serious Hospital course: Assessment and plan: 86 YO Female with Vascular Dementia, Cerebral Atherosclerosis, HTN, PR, DM presents to ED for evaluation. Patient has diminished cognition at the time my evaluation and provides minimal history. Patient reports I feel weak". Additional history provided by EMS staff, ED staff, as well as the patient's neighbor who was at patient bedside during exam and interview. As per neighbor she went to do a well check and found that the patient was weak and confused and not in her normal state of health. EMS notified and upon arrival the patient was found to be in distress with a heart rate in the 30s and systolic blood pressure in the 80s. Patient treated with atropine and transported to [facility] for further care and evaluation of the aforementioned symptoms. The patient was seen and evaluated in the emergency department. All lab and imaging studies reviewed. Patient found to have acute encephalopathy, hypotension, hyperkalemia, brash syndrome. Patient admitted to [facility] due to increased risk of worsening symptoms and for medical stabilization. Patient remains confused with diminished cognition at the time of evaluation but has a positive gag reflex and is able to protect her airway without difficulty. Prior mission on 04/13/2017 reviewed. All medication listed at time of admission has been reconciled. Advanced care planning conducted in ED. Cardiology team consulted in ED. Nephrology team consulted in ED. Past History Past Medical History: acute PR, diabetes, hypertension Past Surgical History: cholecystectomy, hysterectomy Social history: . denies: smoking, alcohol abuse, prescription drug abuse Family history: diabetes, hypertension CT scan brain negative for acute findings. 01/04: Patient was noted on EMS documentation per ED to "patient bradycardic in the field, heart rate of 38 bpm, blood pressure in the 80s/90s. EMS gave atropine x1, with improvement in blood pressure, heart rate to the mid 40s." Renal function was noted to be abnormal with Creatnine of 2 which is above her Baseline of 1. There was concern for Brash Syndrome Given the hypotension, renal insufficiency, bradycardia, potassium of 5.6, concern for symptom of harini cardia, renal insufficiency, AV amish blockade, shock, and hyperkalemia.and patient was started on IV calclium and also fluids with Atropin given. She currently has improved HR AND Bp, Will restart some of her BP meds but avoid the Calcium channel blockers and the BB for now. Will restart her Insulin regimen and adjust diet Will obtain KUB PT/OT Will transfer to Telemetry floor. Anticipate discharge in 24 hrs Grandson updated. 01/05: Patient seen and examined this morning creatinine gradually creeping back up to 1.8. Fluids was discontinued yesterday. We will restart fluids still with hyperkalemia, will give additional dose of Kayexalate. May require some more IV calcium and insulin and recheck in a.m. prior to discharge if renal function has improved. Last Echocardiogram done in the office July 2021 showed normal LV size mild concentric LVH with sclerotic Aortic valve. LVEF 50% 01/06: Cleared by nephrology and cardiology for discharge. Cardiology recommends follow up in office for outpatient PPM placement. Discharge home with rx for isordil 50 mg po bid and hydralazine 50 mg po tid. Advised patient to resume home medications. (1) Brash Syndrome Status: Acute 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 Supportive care. Maintain atropine at bedside. (2) Acute encephalopathy Status: Acute Plan to address problem: CT scan head, neuro check, seizure precautions, supportive care, fall precautions. (3) Bradycardia Status: Acute Plan to address problem: Telemetry monitoring, supportive care. Cardiology team consulted. Echocardiogram ordered and pending at time of admission. (4) Hypertension Status: Acute Qualifiers: Hypertension type: primary hypertension Qualified Code(s): I10 - Essential (primary) hypertension Plan to address problem: Monitor blood pressure every shift, continue medical management. (5) Hyperkalemia Status: Acute Plan to address problem: Calcium gluconate, Kayexalate, BMP, repeat BMP in a.m. (6) Vascular dementia Status: Acute Qualifiers: Dementia behavioral disturbance: without behavioral disturbance Qualified Code(s): F01.50 - Vascular dementia without behavioral disturbance Plan to address problem: Verbal prompting, verbal redirection, benzodiazepine therapy as clinically in dicated. (7) Cerebral atherosclerosis Status: Acute Plan to address problem: Risk factor reduction, supportive care, antiplatelet therapy as clinically indicated. (8) Diabetes Mellitus (9) Abdominal Pain - (10) Coronary artery disese s/p CABG x 3 in 2012 ( SVG to OM, and PDA, with VASQUEZ to LAD ) (11) Advance care planning Status: Acute Plan to address problem: Disease education done, care plan discussed, diagnoses discussed, prognosis discussed, patient is full code. Patient caregiver acknowledges understanding and agreement care plan, +30 minutes. (11) DVT (12) Preventative health care Status: Acute Plan to address problem: Patient and caregiver counseled regarding home safety precautions, outpatient follow-up with primary care physician for all age and risk factor appropriate screening test. +30 minutes. Disposition: 01 HOME / SELF CARE / HOMELESS Final Discharge Diagnosis (Prints w/discharge instructions): sick sinus syndrome, hyperkalemia, acute metabolic encephalopathy, hypertension Time spent for discharge: 35 Core Measure Documentation - Palliative Care Palliative Care/ Comfort Measures: Not Applicable - Core Measures Any of the following diagnoses?: none Exam - Physical Exam Narrative exam: Narrative exam: General appearance: Present: No distress this am - EENT Eyes: Present: PERRL ENT: hearing intact, clear oral mucosa, hearing decreased - Neck Neck: Present: supple, normal ROM - Respiratory Respiratory effort: normal Respiratory: bilateral: CTA - Cardiovascular Rhythm: Regular - Extremities Extremities: pulses symmetrical, No edema Peripheral Pulses: within normal limits - Abdominal General gastrointestinal: Present: soft, non-tender, non-distended, normal bowel sounds. Increased abdominal girth Female genitourinary: Present: normal - Integumentary Integumentary: Present: clear, dry - Musculoskeletal Musculoskeletal: generalized weakness - Psychiatric Psychiatric: no appropriate mood/affect, no intact judgment & insight - Neurologic Neurologic: CNII-XII intact, no focal deficits, moves all extremities, no gait normal - Constitutional Vitals: Temp Pulse Resp BP Pulse Ox 98.6 F 89 20 185/74 97 01/06/22 03:38 01/06/22 06:16 01/06/22 05:08 01/06/22 06:16 01/06/22 09:10 Plan Follow up with: COLE POMPA MD [Staff Physician] - 7 Days Prescriptions: hydrALAZINE [Apresoline TAB] 50 mg PO Q8HR 30 Days #90 tablet Isosorbide Dinitrate [Isordil] 40 mg PO BID 30 Days #60 tablet
--- NOTE | 2022-01-06 12:48 | Progress Note ---
Assessment and Plan - Patient Problems (1) Bradycardia Current Visit: Yes Status: Acute Plan to address problem: Patient presented with dehydration, acute kidney injury, and marked sinus bradycardia with a heart rate of 43. Work-up of bradycardia so far is negative, TSH level was 2.3, within normal limits, echocardiogram showed well-preserved left ventricular systolic function with ejection fraction 55 to 60%. Patient has spontaneously returned to normal sinus rhythm today at 91. There has been no further bradycardia or other dysrhythmia reported on telemetry monitoring. We we will recommend avoid AV amish blocking agents, and if indicated, event monitoring as an outpatient. (2) Uncontrolled hypertension Current Visit: Yes Status: Acute Plan to address problem: Patient's hypertension is currently uncontrolled, systolic blood pressures persistently in the 180s to 190s. I will switch amlodipine to Procardia XL 30 to 60 mg daily for antihypertensive management. Subjective Date of service: 01/06/22 Principal diagnosis: nii, bradycardia Interval history: Patient is comfortable, no cardiac complaints. She was admitted 3 days ago with dehydration, acute kidney injury, and bradycardia. On presentation her sinus rate was 43. Currently, she has a stable sinus rhythm at 91. Objective Vital Signs Temp Pulse Pulse Resp Resp BP Pulse Ox 01/06/22 09:10 97 01/06/22 06:16 89 185/74 01/06/22 05:08 89 20 185/74 95 01/06/22 03:38 98.6 F 78 18 192/55 99 01/06/22 00:59 97 01/05/22 23:23 98.0 F 71 16 149/43 96 01/05/22 22:00 71 96 01/05/22 21:44 83 187/61 01/05/22 21:43 83 187/61 01/05/22 20:22 97 01/05/22 20:00 88 16 01/05/22 19:58 17 187/55 01/05/22 19:27 98.5 F 83 16 187/61 97 01/05/22 16:20 98.6 F 69 18 133/50 98 01/05/22 13:23 64 18 - Physical Examination General: Appears Well, No Apparent Distress HEENT: Positive: PERRL, Mucus Membranes Moist Neck: Positive: neck supple, trachea midline Cardiac: Positive: Reg Rate and Rhythm Lungs: Positive: clear to auscultation Neuro: Positive: Grossly Intact Abdomen: Positive: Unremarkable, Soft, Active Bowel Sounds Skin: Positive: Clear Extremities: Absent: edema - Labs and Meds CBC 01/06/22 Range/Units 05:26 WBC 6.0 (4.5-11.0) K/mm3 RBC 4.07 (3.65-5.03) M/mm3 Hgb 11.6 (10.1-14.3) gm/dl Hct 36.1 (30.3-42.9) % Plt Count 212 (140-440) K/mm3 Comprehensive Metabolic Panel 01/06/22 Range/Units 05:26 Sodium 145 (137-145) mmol/L Potassium 4.0 D (3.6-5.0) mmol/L Chloride 107.6 H (98-107) mmol/L Carbon Dioxide 26 (22-30) mmol/L BUN 29 H (7-17) mg/dL Creatinine 1.7 H (0.6-1.2) mg/dL Glucose 98 (65-100) mg/dL Calcium 9.1 (8.4-10.2) mg/dL
[2022-01-06] MEDS ORDERED: NIFEdipine XL 30 MG TAB PO SCH (13:00)
[2022-01-06 13:19] VITALS: BP 181/79
== END 2022-01-06 16:16 | disposition home health service (06) | DRG 640 ==
LOC: ED 17:09 → IMCU 19:30 → 4A 01-04 11:25
PROVIDERS: ADMIT Internal Medicine; ATTEND Internal Medicine
DX: E87.5 Hyperkalemia (principal); G93.41 Metabolic encephalopathy; N17.0 Acute kidney failure with tubular necrosis; I49.5 Sick sinus syndrome; E66.9 Obesity, unspecified; I95.9 Hypotension, unspecified; T50.3X5A Adverse effect of electrolytic, caloric and water-balance agents, initial encounter; Y92.89 Other specified places as the place of occurrence of the external cause; F01.50 Vascular dementia, unspecified severity, without behavioral disturbance, psychotic disturbance, mood disturbance, and anxiety; I25.10 Atherosclerotic heart disease of native coronary artery without angina pectoris; Z95.1 Presence of aortocoronary bypass graft; E11.22 Type 2 diabetes mellitus with diabetic chronic kidney disease; N18.30 Chronic kidney disease, stage 3 unspecified; Z83.3 Family history of diabetes mellitus; Z91.040 Latex allergy status; I25.2 Old myocardial infarction; Z90.49 Acquired absence of other specified parts of digestive tract; Z90.710 Acquired absence of both cervix and uterus; Z82.49 Family history of ischemic heart disease and other diseases of the circulatory system; Z68.28 Body mass index [BMI] 28.0-28.9, adult
CPT/HCPCS: 36415; 70450; 71045; 74018; 80048; 80053; 80320; 81001; 82140; 82550; 82962; 84443; 84484; 85007; 85025; 85027; 85610; 85730; 86850; 86900; 86901; 87076; 87086; 87186; 93005; 93306; 94640; 94760; G0378; J3490; Q9967; C8929; G0480; J0461; J0610; J1170; J1815; J2405; J2765; J7030; J7040